=== PATIENT | female | born 1990 | race Caucasian/White ===

== ENCOUNTER 2019-12-15 13:48 | Outpatient (RCR) | payer OTHER, SELFPAY ==
[2019-12-15] MEDS: RHO(D) IMMUNE GLOBULIN 300 MCG SYRINGE IM (16:54)
== END 2020-03-14 23:59 | disposition home or self-care (01) ==
LOC: ANHLAB 13:48
PROVIDERS: PCP Student in an Organized Health Care Education/Training Program; Visit Provider Student in an Organized Health Care Education/Training Program
DX: Z29.13 Encounter for prophylactic Rho(D) immune globulin (principal); O36.0990 Maternal care for other rhesus isoimmunization, unspecified trimester, not applicable or unspecified; Z3A.00 Weeks of gestation of pregnancy not specified
CPT/HCPCS: 36415; 86900; 86901; 90384; 96372; J2790

== ENCOUNTER 2020-01-01 18:16 | Observation (INO) | payer OTHER, SELFPAY ==
[2020-01-01 18:39] VITALS: BP 146/84; PULSE 89
[2020-01-01 18:45] VITALS: BP 116/75; PULSE 88
[2020-01-01 19:00] VITALS: BP 122/83; PULSE 86
[2020-01-01 19:15] VITALS: BP 129/84; PULSE 89
[2020-01-01 19:30] VITALS: BP 131/90; PULSE 95
[2020-01-01 19:44] LABS: Add Urine Microscopic? YES; Amorphous Sediment Urine Few; Appearance Urine Cloudy (Clear); Bacteria Urine 3+ /hpf; Bilirubin Urine Negative (Negative); Blood Urine Negative (Negative); Color Urine Yellow (Yellow); Glucose Urine UA Negative (Negative); Ketones Urine Negative (Negative); Leukocyte Esterase Ur Negative LEU/UL (Negative); Mucus Urine Rare /lpf; Nitrate Urine Negative (Negative); Protein Urine Negative (Negative); Specific Grav Ur 1.012 (1.001-1.035); Squamous Epithelial Cell Urine Few /hpf (Few); Urobilinogen Urine Negative mg/dL (<2.0)
--- NOTE | 2020-01-01 19:44 | OBADM ---
This patient, Melly Gage, admitted to the OB room OB Post 115 for observation. Patient/family oriented to hospital policies and general routines including ID bracelet, bed and alarms, visiting hours, pain management, procedures, bathroom and other care routines, personal items, smoking policy, room service/diet, and visiting hours. Patient/Family are encouraged to report perceived risks to care and to ask questions if they do not understand what they are told or what they should do.
[2020-01-01 19:45] VITALS: BP 120/78; PULSE 83
--- NOTE | 2020-01-07 13:41 | P.PNOB_ITS ---
OB - Triage/Final Diagnosis Evaluation Laboratory results: Laboratory Tests 01/01/20 19:21 Urine Color Yellow Urine Appearance Cloudy H Urine pH 6.0 Ur Specific [place] 1.012 Urine Protein Negative Urine Glucose (UA) Negative Urine Ketones Negative Ur Blood (Man) Negative Urine Nitrate Negative Urine Bilirubin Negative Urine Urobilinogen Negative Leukocyte Esterase Rfl Negative Urine RBC 3-5 H Urine WBC 10-15 H Ur Squamous Epith Cells Few Amorphous Sediment Few H Urine Bacteria 3+ H Hyaline Casts 1-2 Urine Mucus Rare Final Diagnosis (1) False labor: Code(s): O47.9 - False labor, unspecified Status: Acute
== END 2020-01-01 20:00 | disposition home or self-care (01) ==
PROVIDERS: Admitting Provider Obstetrics & Gynecology; Visit Provider Obstetrics & Gynecology
DX: O47.03 False labor before 37 completed weeks of gestation, third trimester (principal); Z3A.31 31 weeks gestation of pregnancy
CPT/HCPCS: 81001; 87086; 87088; G0378; G0379

== ENCOUNTER 2020-01-30 18:50 | Outpatient (CLI) | payer OTHER, SELFPAY ==
[2020-01-30 19:06] VITALS: BP 145/97; PULSE 83
[2020-01-30 19:16] VITALS: BP 138/99; PULSE 75
[2020-01-30 19:31] VITALS: BP 148/100; PULSE 66
[2020-01-30 20:18] VITALS: BP 145/97; PULSE 83
--- NOTE | 2020-01-31 06:54 | PM.OBTRLD ---
OB - Triage/Final Diagnosis Visit Information Date of evaluation: 01/30/20 Reason for evaluation: other (gestational htn) Evaluation Vital signs: Vital Signs - 24 hr 01/30/20 19:06 01/30/20 19:16 01/30/20 19:31 Pulse Rate 83 75 66 Blood Pressure 145/97 H 138/99 H 148/100 H Blood Pressure [Left Arm] 01/30/20 20:18 Pulse Rate 83 Blood Pressure Blood Pressure [Left Arm] 145/97 H
== END 2020-01-30 19:45 | disposition home or self-care (01) ==
PROVIDERS: Visit Provider Student in an Organized Health Care Education/Training Program
DX: O13.9 Gestational [pregnancy-induced] hypertension without significant proteinuria, unspecified trimester (principal); Z3A.00 Weeks of gestation of pregnancy not specified
CPT/HCPCS: 59025

== ENCOUNTER 2020-01-31 19:12 | Outpatient (CLI) | payer OTHER, SELFPAY ==
[2020-01-31 19:30] VITALS: BMI 33.7
[2020-01-31 19:37] LABS: Collection Time Urine 24 HOURS
[2020-01-31 19:40] LABS: Patient Weight 202 Lbs; Total Volume 24 Hour Urine 2300 ml
[2020-01-31 19:45] LABS: Creatinine Clearance Urine 154.1 ml/min (75-125); Creatinine Urine 55.2 mg/dL
[2020-01-31 19:47] LABS: Total Protein Urine 24 Hr 3565 MG/DAY (28-141); Total Protein Urine Random 155 mg/dL
== END 2020-01-31 19:13 | disposition home or self-care (01) ==
LOC: ANHOBOP 19:21
PROVIDERS: Visit Provider Obstetrics & Gynecology
DX: O13.9 Gestational [pregnancy-induced] hypertension without significant proteinuria, unspecified trimester (principal); Z3A.00 Weeks of gestation of pregnancy not specified
CPT/HCPCS: 81050; 82575; 84156

== ENCOUNTER 2020-02-05 13:46 | Outpatient (RCR) | payer OTHER, SELFPAY ==
[2020-01-08 18:57] VITALS: BP 129/79; PULSE 89; RESP 16; TEMP 36.9
[2020-01-12 10:59] VITALS: BP 131/74; PULSE 99
[2020-01-15 18:34] VITALS: BP 128/76; PULSE 90; RESP 16; TEMP 36.6
[2020-01-15 19:00] VITALS: BP 128/76; PULSE 90
[2020-01-19 14:32] VITALS: BP 131/89; PULSE 84
[2020-01-22 18:43] VITALS: BP 128/89; PULSE 85
--- NOTE | 2020-01-22 18:52 | PC.NURSE ---
dr hayes returned paged and given pt report. tracing and toco tracing reviewed via telephone. pt bp reviewed via telephone. discharge orders received.
[2020-01-22 18:53] VITALS: TEMP 37.2
[2020-01-26 12:11] VITALS: BP 133/88; PULSE 91
[2020-01-29] VITALS (8 sets, daily range): BP systolic 139–156; BP diastolic 90–101; PULSE 72–89; RESP 16; TEMP 36.7
--- NOTE | 2020-01-29 18:43 | PC.NURSE ---
Patient in OB unit for NST for gestational diabetes. Upon assessment 2+ edema noted on ankles, 1+ noted on feet and trace noted on hands. Patient reports sudden increase of edema over last 3 days. Patient also reports intermittent LINK and intermittent right sided pain. BP upon assessment was 139/95 and 142/90, which is higher than patients normal. Dr. Escobar notified. Orders received.
--- NOTE | 2020-01-29 19:00 | PC.NURSE ---
24 Hour urine collection started
--- NOTE | 2020-01-29 19:08 | PC.NURSE ---
Plan of care discussed with patient. Lab work being collected explained to patient. Patient states understanding and denies questions.
[2020-01-29 19:15] LABS: Basophils Percent Auto 0.3 % (0.2-1.2); Eosinophils Absolute Auto 0.1 K/mm3 (0-0.3); Eosinophils Percent Auto 0.7 % (0-4.4); Hematocrit 34.3 % (37.0-47.0); Hemoglobin 11.9 g/dL (12.0-15.0); Immature Granulocyte Absolute 0.07 K/mm3 (0.00-0.031); Immature Granulocyte Percent A 0.6 % (0-0.5); Lymphocytes Absolute Auto 2.53 K/mm3 (0.9-3.2); Lymphocytes Percent Auto 22.8 % (18.3-44.2); Mean Corpuscular HGB Conc 34.7 g/dl (32-36); Mean Corpuscular Hemoglobin 31.2 pg (26-34); Mean Corpuscular Volume 89.8 fl (80-100); Mean Platelet Volume 12.6 fl (7.4-10.4); Monocytes Absolute Auto 0.9 K/mm3 (0.1-0.6); Monocytes Percent Auto 8.1 % (2.6-8.5); Neutrophils Absolute Auto 7.5 K/mm3 (1.3-6.7); Neutrophils Percent Auto 67.5 % (45.5-73.1); Platelet Count Result 154 k/mm3 (150-375); Red Blood Count 3.82 M/mm3 (4.2-5.4); White Blood Count 11.1 K/mm3 (4.5-10.0)
[2020-01-29 19:18] LABS: Add Urine Microscopic? YES; Appearance Urine Clear (Clear); Bacteria Urine 2+ /hpf; Bilirubin Urine Negative (Negative); Blood Urine Negative (Negative); Color Urine Yellow (Yellow); Glucose Urine UA Negative (Negative); Ketones Urine Negative (Negative); Leukocyte Esterase Ur Negative LEU/UL (NEGATIVE); Mucus Urine Rare /lpf; Nitrate Urine Negative (Negative); Protein Urine 3+ mg/dL (Negative); RBC Urine 0-2 /hpf (0-2); Specific Grav Ur 1.017 (1.001-1.035); Squamous Epithelial Cell Urine Few /hpf (Few); Urobilinogen Urine Negative mg/dL (<2.0); WBC Urine 0-3 /hpf (0-3)
[2020-01-29 19:21] LABS: Creatinine Urine 72.4 mg/dL; Total Protein Urine Random 137 mg/dL
[2020-01-29 19:25] LABS: Alanine Aminotransferase 19 U/L (4-35); Albumin Level 3.2 g/dL (3.5-5.1); Alkaline Phosphatase 139 U/L (38-126); Aspartate Amino Transferase 29 U/L (14-36); Bilirubin,Total < 0.1 mg/dL (0.2-1.3); Blood Urea Nitrogen 15 mg/dL (7-17); Calcium 8.3 mg/dL (8.4-10.2); Carbon Dioxide 24 mmol/L (22-30); Chloride 103 mmol/L (98-107); Estimated Glomerular Filt Rate > 60; Glucose 88 mg/dL (65-105); Potassium 4.1 mmol/L (3.4-5.0); Sodium 133 mmol/L (137-145); Uric Acid 6.7 mg/dL (2.5-7.5)
[2020-01-29 19:36] LABS: Glucose Point of Care 90 (65-105)
--- NOTE | 2020-01-29 19:48 | PC.NURSE ---
Dr. Escobar notified of patient lab results. Patient to be sent home with order for 24 hour urine collection. Patient to follow-up on Sunday in office. HIP precautions will be reviewed with patient prior to being sent home.
--- NOTE | 2020-01-29 20:00 | PC.NURSE ---
24 hour urine collection instructions reviewed with patient. Patient instructed to return 24 hour urine to OB department upon completion of collection. Patient states understanding. HIP precautions reviewed with patient. Patient states understanding. Patient left ambulating.
[2020-02-02 14:32] VITALS: BP 138/93; PULSE 89
--- NOTE | ~2020-02-05 | US_ITS ---
EXAMINATION: US OB BPP wo non-stress DATE: 01/19/2020 14:20 INDICATION: Gestational diabetes. Third trimester. TECHNIQUE: Real-time pelvic ultrasound was performed. COMPARISON: None. FINDINGS: There is a single living fetus in transverse lie. The placenta is anterior. heart rate is 146 beats per minute (bpm). Biophysical profile performed by the technologist: breathing (30 sec sustained breathing in 30 minutes): 2 out of 2 movement (3 gross body movements in 30 minutes): 2 out of 2 tone (one episode of fdwtxgp-[id number]-qenfgqy limb movement): 2 out of 2 Amniotic fluid pocket (2 cm): 2 out of 2 Total score: 8 out of 8 IMPRESSION: 1. Single living fetus in transverse lie. 2. Biophysical profile 8 out of 8. Reviewed, dictated and finalized at location A.
[2020-02-05 15:24] VITALS: BP 134/94; PULSE 89
== END 2020-02-10 08:15 | disposition home or self-care (01) ==
LOC: ANHOBOP 13:46
PROVIDERS: Obstetrics & Gynecology; Visit Provider Student in an Organized Health Care Education/Training Program
DX: O24.419 Gestational diabetes mellitus in pregnancy, unspecified control (principal); Z3A.32 32 weeks gestation of pregnancy; Z3A.33 33 weeks gestation of pregnancy; Z3A.34 34 weeks gestation of pregnancy; Z3A.35 35 weeks gestation of pregnancy; Z3A.36 36 weeks gestation of pregnancy
CPT/HCPCS: 36415; 59025; 76819; 80053; 81001; 82570; 84156; 84550; 85025

== ENCOUNTER 2020-02-08 09:21 | Inpatient (IN) | payer OTHER, SELFPAY ==
[2020-02-08] VITALS (23 sets, daily range): BP systolic 123–155; BP diastolic 81–106; PULSE 70–91; TEMP 36.6–36.7; BMI 36.7
[2020-02-08 10:55] LABS: Basophils Percent Auto 0.2 % (0.2-1.2); Eosinophils Absolute Auto 0.1 K/mm3 (0-0.3); Eosinophils Percent Auto 0.9 % (0-4.4); Hematocrit 35.3 % (37.0-47.0); Immature Granulocyte Absolute 0.08 K/mm3 (0.00-0.031); Immature Granulocyte Percent A 0.7 % (0-0.5); Lymphocytes Absolute Auto 2.02 K/mm3 (0.9-3.2); Lymphocytes Percent Auto 17.1 % (18.3-44.2); Mean Corpuscular Hemoglobin 31.1 pg (26-34); Mean Corpuscular Volume 91.5 fl (80-100); Monocytes Absolute Auto 1.1 K/mm3 (0.1-0.6); Monocytes Percent Auto 9.2 % (2.6-8.5); Neutrophils Absolute Auto 8.5 K/mm3 (1.3-6.7); Neutrophils Percent Auto 71.9 % (45.5-73.1); Platelet Count Result 114 k/mm3 (150-375); Red Blood Count 3.86 M/mm3 (4.2-5.4); Red Cell Distribution Width 14.3 % (11.5-14.5); White Blood Count 11.8 K/mm3 (4.5-10.0)
[2020-02-08 11:15] LABS: Alanine Aminotransferase 66 U/L (4-35); Albumin Level 2.9 g/dL (3.5-5.1); Alkaline Phosphatase 156 U/L (38-126); Aspartate Amino Transferase 63 U/L (14-36); Bilirubin,Total < 0.1 mg/dL (0.2-1.3); Blood Urea Nitrogen 17 mg/dL (7-17); Calcium 8.8 mg/dL (8.4-10.2); Carbon Dioxide 25 mmol/L (22-30); Chloride 105 mmol/L (98-107); Estimated Glomerular Filt Rate > 60; Glucose 63 mg/dL (65-105); Potassium 4.6 mmol/L (3.4-5.0); Sodium 133 mmol/L (137-145); Uric Acid 6.9 mg/dL (2.5-7.5)
[2020-02-08 11:21] LABS: Add Urine Microscopic? YES; Appearance Urine Cloudy (Clear); Bacteria Urine 1+ /hpf; Bilirubin Urine Negative (Negative); Blood Urine 1+ (Negative); Color Urine Amber (Yellow); Glucose Urine UA Negative (Negative); Ketones Urine Trace mg/dL (Negative); Leukocyte Esterase Ur Negative LEU/UL (NEGATIVE); Mucus Urine Moderate /lpf; Nitrate Urine Negative (Negative); Protein Urine 3+ mg/dL (Negative); Squamous Epithelial Cell Urine Many /hpf (Few); Urobilinogen Urine Negative mg/dL (<2.0)
[2020-02-08 11:53] LABS: Creatinine Urine 263.1 mg/dL
--- NOTE | 2020-02-08 12:50 | PM.IMHP ---
H&P: HPI History of Present Illness Chief complaint: swelling Narrative: 29 y/o at 36 5/7 weeks here with headache and increased swelling. Good movement. A2DM. Takes 10NPH/14H in AM, 10H at dinner, and 28NPH at bedtime. Takes labetalol 200 mg po bid. No abdominal pain, no visual field change. Headache better after a dose of Fioricet. 24 hour urine collection last week returned at >3000mg. Review of Systems Review of Systems: All systems reviewed & are unremarkable except as noted in HPI and below PMFSH Family History Family History Other Unknown family medical history Social History Social History Substance use: never Spiritual care concerns: No Comments Past OB: 2 vaginal deliveries, one SAB, one termination. Larger infant weighed 10#. Meds Home Medications and Allergies Home Medications Medication Instructions Recorded Confirmed Type PNV cmb#95-ferrous fumarate-FA 1 tablet PO DAILY 02/02/20 02/02/20 History [] insulin NPH isoph U-100 human 10 unit SUBCUT HS 02/02/20 02/02/20 History [Humulin N NPH U-100 Insulin] insulin NPH isoph U-100 human 28 unit SUBCUT QACBREAK 02/02/20 02/02/20 History [Humulin N NPH U-100 Insulin] insulin lispro [Humalog KwikPen 10 unit SUBCUT QPM 02/02/20 02/02/20 History Insulin] insulin lispro [Humalog KwikPen 14 unit SUBCUT QAM 02/02/20 02/02/20 History Insulin] Allergies Allergy/AdvReac Type Severity Reaction Status Date / Time No Known Allergies Allergy Verified 02/02/20 12:42 Vital Signs Vital Signs - 24 hr 02/08/20 10:31 02/08/20 10:46 02/08/20 11:01 Pulse Rate 70 72 72 Blood Pressure 146/93 H 149/100 H 155/96 H 02/08/20 11:16 02/08/20 11:31 02/08/20 11:46 Pulse Rate 76 77 75 Blood Pressure 145/95 H 143/99 H 149/94 H Exam Const: Orientation/consciousness: patient oriented x3 Other: Well-developed, well-nourished female in no acute distress. Neck: Thyroid: thyroid normal Lymphatic: no lymphadenopathy noted (in neck, axilla or inguinal nodes) Resp: Effort & Inspection: normal respiratory effort Auscultation: clear to auscultation bilaterally Cardio: Rate: regular rate Rhythm: regular rhythm Heart sounds: S1 normal heart sound present and S2 normal heart sound present GI: Other: ABD: Soft, nontender, gravid, vertex. NST 120 reactive. TOCO: no contractions. No RUQ or midepigastric tenderness. : General: Yes no CVA tenderness Other: Cervix closed, thick, soft. Back/Spine/Pelvis: Back: no CVA tenderness Skin: General skin exam: normal color and no rashes or lesions noted Neuro: General: patient oriented x3 Extrem: Other: Extremities: nontender with 2+ edema to the knees. Psych: Mental Status: mental status grossly normal Affect: normal affect H&P: Results Labs Labs: Short CBC 02/08/20 Range/Units 10:46 WBC 11.8 H (4.5-10.0) K/mm3 Hgb 12.0 (12.0-15.0) g/dL Hct 35.3 L (37.0-47.0) % Plt Count 114 L (150-375) k/mm3 BMP 02/08/20 10:46 Sodium 133 L Potassium 4.6 Chloride 105 Carbon Dioxide 25 BUN 17 Creatinine 0.60 L Glucose 63 L Calcium 8.8 Liver Function 02/08/20 Range/Units 10:46 Total Bilirubin < 0.1 L (0.2-1.3) mg/dL AST 63 H (14-36) U/L ALT 66 H (4-35) U/L Alkaline Phosphatase 156 H (38-126) U/L Albumin 2.9 L (3.5-5.1) g/dL Urine 02/08/20 Range/Units 10:46 Urine Color Lizzy (Yellow) Urine Appearance Cloudy H (Clear) Urine pH 6.0 (5.0-9.0) Ur Specific [place] 1.030 (1.001-1.035) Urine Protein 3+ H (Negative) mg/dL Urine Glucose (UA) Negative (Negative) mg/dL Assessment and Plan Assessment and plan (1) Preeclampsia: Code(s): O14.90 - Unspecified pre-eclampsia, unspecified trimester Status: Acute Assessment and Plan: Platelets decreased, trans
[2020-02-08 13:15] LABS: Total Protein Urine Random > 600 mg/dL
--- NOTE | 2020-02-08 16:21 | LDADM ---
This patient, Melly Gage, was admitted to OB Post 115 on 02/08/20 at 09:21. Plans for labor, pain management and were discussed with patient. Patient/family oriented to hospital policies and general routines including ID bracelet, bed and alarms, visiting hours, pain management, procedures, bathroom and other care routines, personal items, smoking policy, room service/diet and guest tray routines, infant security routines, and visiting hours. Patient/Family are encouraged to report perceived risks to care and to ask questions if they do not understand what they are told or what they should do. See OBIX for further documentation.
[2020-02-08 18:09] LABS: HIV 1/2 Ab P24 Ag Result Negative (Negative)
[2020-02-08] MEDS: INSULIN HUMAN REGULAR (*BKC) 100 UNITS/ML 10 UNITS SUB-Q (18:24)
[2020-02-08] MEDS: LABETALOL HCL 100 MG TABLET 200 MG PO (19:29)
[2020-02-08] MEDS: DINOPROSTONE 10 MG VAG INSERT VAGINAL (19:37)
[2020-02-08 19:42] LABS: Glucose Point of Care 110 (65-105)
[2020-02-08] MEDS: INSULIN HUMAN NPH (*BKC) 100 UNITS/ML 10 UNITS SUB-Q (21:26)
[2020-02-08] MEDS: ZOLPIDEM TARTRATE 5 MG TABLET PO (21:27)
[2020-02-09] VITALS (79 sets, daily range): BP systolic 115–169; BP diastolic 72–116; PULSE 57–100; RESP 16; TEMP 36.1–36.8; O2SAT 88–100
[2020-02-09] MEDS: LACTATED RINGERS 1,000 ML 125 ML IV CONT ×2 (05:32→08:11)
[2020-02-09] MEDS: OXYTOCIN 30 UNITS/NS 500 ML 30 UNITS/500 ML BAG IV CONT (05:33)
[2020-02-09 06:09] LABS: Glucose Point of Care 64 (65-105)
[2020-02-09] MEDS: LABETALOL HCL 100 MG TABLET 200 MG PO ×2 (07:07→19:33)
--- NOTE | 2020-02-09 07:13 | PM.OBPNVD ---
OB - PN: Subj Subjective Date/time seen: 02/09/20 07:13 Interval history: cx 3/80/-2 arom clear fhts reassuring bp labile OB - PN: Obj Data Labs CBC & Chem 7: 02/08/20 10:46 02/08/20 10:46 Labs: Laboratory Results - last 24 hr 02/08/20 02/08/20 02/08/20 10:46 10:46 10:46 WBC 11.8 H RBC 3.86 L Hgb 12.0 Hct 35.3 L MCV 91.5 MCH 31.1 MCHC 34.0 RDW 14.3 Plt Count 114 L MPV 13.0 H Immature Gran % (Auto) 0.7 H Neut % (Auto) 71.9 Lymph % (Auto) 17.1 L [place] % (Auto) 9.2 H Eos % (Auto) 0.9 Baso % (Auto) 0.2 Lymph # (Auto) 2.02 [place] # (Auto) 1.1 H Eos # (Auto) 0.1 Baso # (Auto) 0.0 Abs Immat Gran (auto) 0.08 H Absolute Neuts (auto) 8.5 H Absolute Nucleated RBC 0.0 Nucleated RBC % 0.0 Sodium Potassium Chloride Carbon Dioxide BUN Creatinine Estim Creat Clear Calc Estimated GFR Glucose POC Capillary Glucose Uric Acid Calcium Total Bilirubin AST ALT Alkaline Phosphatase Total Protein Albumin Urine Color Lizzy Urine Appearance Cloudy H Urine pH 6.0 Ur Specific [place] 1.030 Urine Protein 3+ H Urine Glucose (UA) Negative Urine Ketones Trace Ur Blood (Man) 1+ H Urine Nitrate Negative Urine Bilirubin Negative Urine Urobilinogen Negative Ur Leukocyte Esterase Negative Urine RBC 3-5 H Urine WBC 10-15 H Ur Squamous Epith Cells Many H Urine Bacteria 1+ H Hyaline Casts 5-9 H Urine Mucus Moderate H U Random Total Protein > 600 Urine Creatinine 263.1 HIV 1&2 Ab/P24 Ag 4thGn Blood Type Antibody Screen 02/08/20 02/08/20 02/08/20 10:46 17:01 17:01 WBC RBC Hgb Hct MCV MCH MCHC RDW Plt Count MPV Immature Gran % (Auto) Neut % (Auto) Lymph % (Auto) [place] % (Auto) Eos % (Auto) Baso % (Auto) Lymph # (Auto) [place] # (Auto) Eos # (Auto) Baso # (Auto) Abs Immat Gran (auto) Absolute Neuts (auto) Absolute Nucleated RBC Nucleated RBC % Sodium 133 L Potassium 4.6 Chloride 105 Carbon Dioxide 25 BUN 17 Creatinine 0.60 L Estim Creat Clear Calc Not Reportable Estimated GFR > 60 Glucose 63 L POC Capillary Glucose Uric Acid 6.9 Calcium 8.8 Total Bilirubin < 0.1 L AST 63 H ALT 66 H Alkaline Phosphatase 156 H Total Protein 6.0 L Albumin 2.9 L Urine Color Urine Appearance Urine pH Ur Specific [place] Urine Protein Urine Glucose (UA) Urine Ketones Ur Blood (Man) Urine Nitrate Urine Bilirubin Urine Urobilinogen Ur Leukocyte Esterase Urine RBC Urine WBC Ur Squamous Epith Cells Urine Bacteria Hyaline Casts Urine Mucus U Random Total Protein Urine Creatinine HIV 1&2 Ab/P24 Ag 4thGn Negative Blood Type O Negative Antibody Screen Negative 02/08/20 02/09/20 19:31 05:47 WBC RBC Hgb Hct MCV MCH MCHC RDW Plt Count MPV Immature Gran % (Auto) Neut % (Auto) Lymph % (Auto) [place] % (Auto) Eos % (Auto) Baso % (Auto) Lymph # (Auto) [place] # (Auto) Eos # (Auto) Baso # (Auto) Abs Immat Gran (auto) Absolute Neuts (auto) Absolute Nucleated RBC Nucleated RBC % Sodium Potassium Chloride Carbon Dioxide BUN Creatinine Estim Creat Clear Calc Estimated GFR Glucose POC Capillary Glucose 110 64 L Uric Acid Calcium Total Bilirubin AST ALT Alkaline Phosphatase Total Protein Albumin Urine Color Urine Appearance Urine pH Ur Specific [place] Urine Protein Urine Glucose (UA) Urine Ketones Ur Blood (Man) Urine Nitrate Urine Bilirubin Urine Urobilinogen Ur Leukocyte Esterase Urine RBC Urine WBC Ur Squamous Epith Cells Urine Bacteria Hyaline Casts Urine Mucus U Ran
[2020-02-09 07:40] LABS: Rapid Plasma Reagin Non-Reactive (NonReactive)
[2020-02-09 08:31] LABS: Glucose Point of Care 82 (65-105)
--- NOTE | 2020-02-09 09:07 | WPDANESEPPF ---
Anes - Initial Pre Proc Eval Date/Time: 02/09/20 09:07 Surgeon: Champ Escobar MD Pre Op Diagnosis: swelling Patient Data Age: 29 Gender: F Height: 5 ft 4 in Weight: 97 kg Last Vital Signs Temp 36.8 C 02/09/20 08:13 Pulse 76 02/09/20 09:00 BP 136/94 H 02/09/20 09:00 Pulse Ox 97 02/09/20 09:05 Allergies Allergy/AdvReac Type Severity Reaction Status Date / Time No Known Allergies Allergy Verified 02/02/20 12:42 Home Medications Medication Instructions Recorded Confirmed Type PNV cmb#95-ferrous fumarate-FA 1 tablet PO DAILY 02/02/20 02/08/20 History [] insulin NPH isoph U-100 human 10 unit SUBCUT HS 02/02/20 02/08/20 History [Humulin N NPH U-100 Insulin] insulin NPH isoph U-100 human 28 unit SUBCUT QACBREAK 02/02/20 02/08/20 History [Humulin N NPH U-100 Insulin] insulin lispro [Humalog KwikPen 10 unit SUBCUT QPM 02/02/20 02/08/20 History Insulin] insulin lispro [Humalog KwikPen 14 unit SUBCUT QAM 02/02/20 02/08/20 History Insulin] labetalol 200 mg PO BID 02/08/20 02/08/20 History Laboratory Tests 02/08/20 02/08/20 02/08/20 10:46 10:46 10:46 WBC 11.8 K/mm3 H K/mm3 (4.5-10.0) RBC 3.86 M/mm3 L M/mm3 (4.2-5.4) Hgb 12.0 g/dL g/dL (12.0-15.0) Hct 35.3 % L % (37.0-47.0) MCV 91.5 fl fl (80-100) MCH 31.1 pg pg (26-34) MCHC 34.0 g/dl g/dl (32-36) RDW 14.3 % % (11.5-14.5) Plt Count 114 k/mm3 L k/mm3 (150-375) MPV 13.0 fl H fl (7.4-10.4) Immature Gran % (Auto) 0.7 % H % (0-0.5) Neut % (Auto) 71.9 % % (45.5-73.1) Lymph % (Auto) 17.1 % L % (18.3-44.2) [place] % (Auto) 9.2 % H % (2.6-8.5) Eos % (Auto) 0.9 % % (0-4.4) Baso % (Auto) 0.2 % % (0.2-1.2) Lymph # (Auto) 2.02 K/mm3 K/mm3 (0.9-3.2) [place] # (Auto) 1.1 K/mm3 H K/mm3 (0.1-0.6) Eos # (Auto) 0.1 K/mm3 K/mm3 (0-0.3) Baso # (Auto) 0.0 K/mm3 K/mm3 (0.0-0.1) Abs Immat Gran (auto) 0.08 K/mm3 H K/mm3 (0.00-0.031) Absolute Neuts (auto) 8.5 K/mm3 H K/mm3 (1.3-6.7) Absolute Nucleated RBC 0.0 K/mm3 K/mm3 (0.0-0.012) Nucleated RBC % 0.0 % % (0.0-0.2) Sodium Potassium Chloride Carbon Dioxide BUN Creatinine Estim Creat Clear Calc Estimated GFR Glucose POC Capillary Glucose Uric Acid Calcium Total Bilirubin AST ALT Alkaline Phosphatase Total Protein Albumin Urine Color Lizzy (Yellow) Urine Appearance Cloudy H (Clear) Urine pH 6.0 (5.0-9.0) Ur Specific [place] 1.030 (1.001-1.035) Urine Protein 3+ mg/dL H mg/dL (Negative) Urine Glucose (UA) Negative mg/dL mg/dL (Negative) Urine Ketones Trace mg/dL mg/dL (Negative) Ur Blood (Man) 1+ H (Negative) Urine Nitrate Negative (Negative) Urine Bilirubin Negative (Negative) Urine Urobilinogen Negative mg/dL mg/dL (<2.0) Ur Leukocyte Esterase Negative CARLITOS/UL CARLITOS/UL (NEGATIVE) Urine RBC 3-5 /hpf H /hpf (0-2) Urine WBC 10-15 /hpf H /hpf (0-3) Ur Squamous Epith Cells Many /hpf H /hpf (Few) Urine Bacteria 1+ /hpf H /hpf Hyaline Casts 5-9 /lpf H /lpf (None) Urine Mucus Moderate /lpf H /lpf U Random Total Protein > 600 mg/dL mg/dL Urine Creatinine 263.1 mg/dL mg/dL RPR HIV 1&2 Ab/P24 Ag 4thGn Blood Type Antibody Screen 02/08/20 02/08/20 02/08/20 10:46 17:01 17:01 WBC RBC Hgb
[2020-02-09] MEDS: MISOPROSTOL 200 MCG TABLET 800 MCG RECTAL (10:51)
[2020-02-09] MEDS: ONDANSETRON INJ 4 MG/2 ML VIAL IV PUSH (10:51)
--- NOTE | 2020-02-09 11:00 | PM.OBPRVD ---
OB - Delivery Note Procedure Procedure: Patient delivered precipitously in the bed. Dr. Janie Webber entered the room and the fetus had delivered and was still attached to the umbilical cord. The cord was clamped and cut and a segment of cord was collected for cord gases. Cord blood was collected for blood type and Coomb's testing. While providing gentle traction, the umbilical cord had evulsed from the placenta. At this time it was decided that the placenta would need to be manually extracted. At this time I arrived to complete the placental delivery. The patient was given 2 g of Ancef. The uterus was palpated and noted to have clamped down with the placenta in utero. Banjo curretage was performed under bedside ultrasound guidance. The placenta was delivered in several pieces. A good endometrial stripe was observed under bedside ultrasound. Good hemostasis was noted. 800 mcg of cytotec was placed rectally. The perineum was inspected and there was a 1st degree perineal laceration. The laceration was repaired with 3-0 vicryl in the usual fashion. The uterus was firm and good hemostasis was noted. The patient and fetus were stable in the delivery room. events: Pre-Eclampsia and Rh Incompatibility Induction method: other (Cervidil ) Delivery augmentation: pitocin Delivery monitor: external FHT Route of delivery: Episiotomy description: None Laceration description: Perineal - 1st Degree Delivery repair: vicryl Specimen: No Estimated blood loss (mL): 350 Anesthesia type: Epidural Disposition: floor () Complications: umbilical cord evulsion, retained placenta requiring D&C Baby Date of : 02/09/20 Weeks of gestation at delivery: 36 gender: Male presentation: vertex Placenta delivery description: Spontaneous cord vessel description: 3 Vessels
[2020-02-09 11:05] LABS: Hemoglobin 12.1 g/dL (12.0-15.0)
[2020-02-09] MEDS: ceFAZolin 2 GM/D5W 50 ML 2 GM/50 ML BAG IVPB (11:27)
[2020-02-09] MEDS: OXYTOCIN 30 UNITS/NS 500 ML 30 UNITS/500 ML BAG 125 UNITS IV CONT (11:27)
[2020-02-09] MEDS: IBUPROFEN 600 MG TABLET PO ×2 (16:18→21:32)
[2020-02-09] MEDS: ACETAMINOPHEN 325 MG TABLET 650 MG PO (17:20)
--- NOTE | 2020-02-09 17:26 | PC.NURSE ---
Patient transferred to post room #284 via wheelchair. Support person present. Oriented to unit, room, information board, rooming in, admission packet and security measures. Patient verbalizes understanding.
--- NOTE | 2020-02-10 00:28 | PC.NURSE ---
1929- Patient's assessment done at this time. C/o occipital LINK-PL 8. Pt has had both Motrin and Tylenol in the last few hours. Gave cool rag and turned out the lights so the pt could rest. BP 129/86. 2129- Pt calls out requesting pain meds for a LINK-PL 9. Pt grimacing. Motrin given. Will call Dr. Escobar o/c to request for something stronger for LINK. BP taken - 125/82. No other complaints at this time. 2138- Paged Dr. Walter. 2216- Paged Dr. Escobar a second time. 2218- Dr. Escobar called back right away after second page. Updated on pt status. Pt c/o LINK-PL 9, BPs are within normal limits and no other complaints. Orders received for Fioricet PO Q4H PRN. Call if patient's LINK does not improve. 2253- Fioricet given. 2349- Checked on pt. States her LINK is completely gone.
[2020-02-10] MEDS: IBUPROFEN 600 MG TABLET PO ×2 (04:33→17:28)
[2020-02-10 05:02] LABS: Hematocrit 29.6 % (37.0-47.0); Hemoglobin 9.8 g/dL (12.0-15.0)
[2020-02-10] MEDS: POLYSACCHARIDE IRON COMPLEX 150 MG CAPSULE PO ×2 (07:38→17:28)
[2020-02-10] MEDS: DOCUSATE SODIUM 100 MG CAPSULE PO ×2 (07:38→17:28)
[2020-02-10] MEDS: LABETALOL HCL 100 MG TABLET 200 MG PO ×2 (07:38→20:22)
[2020-02-10] MEDS: MULTIVIT/MIN/PREN/FOL AC/IRON TABLET 1 TAB PO (07:38)
[2020-02-10 08:45] VITALS: BP 136/92; PULSE 78; RESP 14; TEMP 36.7
--- NOTE | 2020-02-10 10:16 | WPDANLDPN2 ---
Anes-Prog Note L&D Date/Time: 02/10/20 10:16 Comfortable throughout: labor and delivery Neuraxial method: epidural Epidural/Spinal procedure site: clean & non-tender Neuro status: Neuro function grossly intact. Cardiovascular status: normal Respiratory status: normal Airway patency: baseline Mental status: baseline Post-Op hydration status: normal Vital Signs: Last Vital Signs Temp 36.4 C 02/09/20 19:30 Pulse 77 02/09/20 19:33 Resp 16 02/09/20 19:30 BP 125/82 02/09/20 21:30 Pulse Ox 100 02/09/20 19:30 Post-procedural complaints: none Patient feedback: Patient satisfied with anesthetic care.
[2020-02-10] MEDS: TETANUS,DIPHTHERIA,AC PERTUSSIS ADULT (0.5 ML) BOOSTRIX IM (13:33)
[2020-02-10 17:36] VITALS: BP 135/95; PULSE 80; RESP 14; TEMP 36.5
--- NOTE | 2020-02-10 18:08 | P.PNOB_ITS ---
OB - PN: Subj Subjective Date/time seen: 02/10/20 18:08 Narrative: Intermittent headaches, resolve with Fioricet. Feels fine currently. BP well- controlled. Desires circumcision for son. OB - PN: Obj Data Labs CBC & Chem 7: 02/10/20 04:38 02/08/20 10:46 Labs: Laboratory Results - last 24 hr 02/10/20 04:38 Hgb 9.8 L Hct 29.6 L OB - PN A/P Plan Comments: A: PPD#1, doing well. Preeclampsia, resolving. Intermittent headache, responds to Fioricet. GDM, delivered. P: Routine care. Reviewed circumcision in detail. Exam Psych: Other: AVSS ABD soft, nontender, fundus firm EXT nontender
[2020-02-10 20:15] VITALS: BP 142/93; PULSE 80; RESP 16; TEMP 36.8; O2SAT 100
[2020-02-10 20:22] VITALS: PULSE 80
[2020-02-10 23:15] VITALS: BP 130/87; PULSE 83
--- NOTE | 2020-02-11 08:30 | PC.NURSE ---
PT introductions made and plan of care discussed per post , pain management, bottle feeding, daily care activities and pending discharge to home. PT verbalized understanding of such care.
[2020-02-11 08:45] VITALS: BP 139/93; PULSE 88; RESP 18; TEMP 37; O2SAT 99
[2020-02-11 09:45] VITALS: PULSE 96; RESP 18; O2SAT 99
[2020-02-11 09:46] VITALS: PULSE 96
[2020-02-11] MEDS: DOCUSATE SODIUM 100 MG CAPSULE PO (09:46)
[2020-02-11] MEDS: POLYSACCHARIDE IRON COMPLEX 150 MG CAPSULE PO (09:46)
[2020-02-11] MEDS: LABETALOL HCL 100 MG TABLET 200 MG PO (09:46)
[2020-02-11] MEDS: IBUPROFEN 600 MG TABLET PO (09:47)
--- NOTE | 2020-02-11 13:45 | PC.NURSE ---
PT received discharge instructions per protocol and verbalized understanding of such care
--- NOTE | 2020-02-11 13:45 | PC.NURSE ---
Patient was given the opportunity to view the discharge video Mother & Baby Care, The First Two Weeks and to ask questions. Patient declined viewing the video and has been given the mother/baby guide for home reference but down loaded to video to phone.
--- NOTE | 2020-02-11 14:18 | PC.NURSE ---
PT discharged to home ambulatory accompanied by fob and infant to waiting car. Follow up appts confirmed
--- NOTE | 2020-02-24 06:26 | PM.DS ---
DS: Admitting Diagnosis Admitting Diagnosis Admitting Diagnosis: Encounter for supervision of normal , unspecified, third trimester near term/htn DS: Summary Time Spent with Patient Time attestation: Total time spent providing and/or coordinating discharge services: Exam Const: General: no acute distress Eyes: General: appearance normal, both eyes and all related structures Neck: Neck: supple and no JVD Thyroid: thyroid normal Resp: Effort & Inspection: normal respiratory effort Auscultation: clear to auscultation bilaterally Cardio: Rate: regular rate Rhythm: regular rhythm GI: Inspection: non-distended GI Palp: Yes Soft to palpation, No Tenderness to palpation present (GI) and No Guarding due to palpation present (GI) Auscultation: normal bowel sounds : General: Yes bladder normal to palpation External Female Exam: normal external appearance Speculum Exam - Vagina: normal vaginal discharge and No vaginal bleeding Speculum Exam - Cervix: nontender Bimanual exam- vagina & uterus: bladder normal to palpation and No Cervical tenderness present OB/external & speculum: No vaginal bleeding Skin: General skin exam: no rashes or lesions noted Extrem: General: normal to inspection and no edema Psych: Mental Status: mental status grossly normal Affect: normal affect DS: Data Data Completed and Pending Completed studies during hospitalization: Pending at discharge 02/09/20 11:52 Surgical [PTH] Routine Discharge Plan Discharge Consulting providers: Luiz Baumann Discharging Clinician: William Raymundo Anticipated Discharge Date/Time: 02/11/20 07:07 Patient Disposition: Home, Self-Care Activity: as tolerated and pelvic rest Diet: regular Discharge Instructions: Education: Mom and Baby Guide Given to: Mother Follow-Up: Call your delivering provider's office for an appointment to be seen in: 1 Week Mom and baby should come to the [facility] for the follow-up appointment. Appointment Date/Time: February 12, 2020 at 11:00 am What to expect at your follow-up visit: Blood Pressure Check Call [phone] if you are unable to keep your appointment time. BREAST CARE: 1. Wear a snug supportive bra. 2. For engorgement discomfort: Bottle Feeding: A. May apply ice packs PERINEAL CARE: 1. Until bleeding stops, use your goran bottle after urinating 2. Change your pad frequently throughout the day 3. You may take sitz baths several times a day (fill your bathtub with warm water and soak for 20 minutes.) Do NOT bathe in the water 4. No tub baths until seen by your physician - You may shower ACTIVITY: 1. Rest as much as possible. 2. Do not exercise or lift anything heavier than your baby (such as laundry or other children.) 3. Avoid stairs or driving as much as possible. 4. Do not put anything into the vagina. No douching, tampons, or sexual activity until seen by physician. NOTIFY PHYSICIAN IF YOU HAVE ANY QUESTIONS OR IF ANY OF THE FOLLOWING SYMPTOMS OCCUR: 1. If your perineum becomes red, swollen, or more painful than what you have experienced in the hospital. 2. If your vaginal bleeding becomes foul smelling. 3. If your vaginal bleeding becomes more heavy than a period or if your bleeding changes from pink to bright red. However, you may pass an occasional walnut-sized clot once or twice for the first week . 4. If you experience a sharp, shooting pain in you calves. 5. If you discover a hard, reddened area on your breast or if you experience flu-like symptoms. 6. Call for temp 100.4 or greater DIET: 1. Eat regular, well-balanced meals. 2. Drink plenty of fluids daily. If , drink to thirst. Patient Instructions: Antibiotic Form Stand Alone Forms: General Discharge Information Follow-up/Referrals: William Raymundo MD [Physician] - 1 Week Discharge Medications: New acetaminophen [Mapap (ac
== END 2020-02-11 14:18 | disposition home or self-care (01) | DRG 541 ==
LOC: ANHOBOP 10:21 → ANHOBPP 10:23 → ANHOBOP 13:28 → ANHOB2 02-11 06:49 → ANHLDR 02-12 12:06 → ANHOB2 02-12 12:06 → ANHOBPP 02-12 12:06
PROVIDERS: Admitting Provider Obstetrics & Gynecology; Visit Provider Student in an Organized Health Care Education/Training Program
DX: O14.94 Unspecified pre-eclampsia, complicating childbirth (principal); Z37.0 Single live birth; Z3A.36 36 weeks gestation of pregnancy; O24.424 Gestational diabetes mellitus in childbirth, insulin controlled; O70.0 First degree perineal laceration during delivery; O73.0 Retained placenta without hemorrhage; O62.3 Precipitate labor; O69.89X0 Labor and delivery complicated by other cord complications, not applicable or unspecified; O36.0930 Maternal care for other rhesus isoimmunization, third trimester, not applicable or unspecified
CPT/HCPCS: 36415; 59025; 80053; 81001; 82570; 84156; 84550; 85014; 85018; 85025; 86592; 86703; 86850; 86900; 86901; 87086; 87088; 88307; 90715; A9270; G0432; J0690; J1815; J2405; J2590; J2795; J3010; J7120

== ENCOUNTER 2021-01-28 12:53 | Emergency (ER) | payer OTHER, SELFPAY ==
--- NOTE | ~2021-01-28 | US_ITS ---
EXAMINATION: US OB <= 14 weeks fetus DATE: 01/28/2021 15:06 INDICATION: Miscarriage. TECHNIQUE: Real-time transabdominal and transvaginal pelvic ultrasound was performed. COMPARISON: None. FINDINGS: TRANSABDOMINAL ULTRASOUND: The uterus measures 8.3 x 5.5 x 7.4 cm. TRANSVAGINAL ULTRASOUND: There is an intrauterine gestational sac. A yolk sac is identified. The fet al crown rump length measures 7 mm, which correlates with an estimated gestational age of 6 weeks and 4 day(s) (+/-) 4 day(s). heart motion is identified measuring 123 beats per minute (bpm) by M- mode Doppler. There is a small subchorionic hematoma. The right ovary measures 3.0 x 2.1 x 1.8 cm. Th e left ovary measures 2.0 x 1.3 x 1.2 cm. There is no free fluid in the pelvis. IMPRESSION: 1. Single living intrauterine gestation with estimated date delivery of 09/19/2021. 2. Small subchorionic hematoma. Reviewed, dictated and finalized at location A. IMPRESSION: 1. Single living intrauterine gestation with estimated date delivery of 2020. 2. Small subchorionic hematoma.
[2021-01-28 13:00] VITALS: BP 126/73; PULSE 76; RESP 16; TEMP 36.5; O2SAT 100
--- NOTE | 2021-01-28 13:53 | ED.FEMALEGU ---
HPI - Female Genitourinary General Chief complaint: Vaginal Bleeding Stated complaint: 6-7 WEEKS SPOTTING, CRAMPING Time Seen by Provider: 01/28/21 13:52 Source: patient and RN notes reviewed Mode of arrival: ambulatory Limitations: no limitations and clinical condition History of Present Illness HPI Narrative: Patient is a 30 years old white female presented to the ED with left lower quadrant pain, sharp, started yesterday, worse with activities. This morning patient developed vaginal spotting. Patient is 2 weeks . Patient is 5, para 3 and 2. Patient also is RH negative. Patient denies any fever, chills, nausea, vomiting, diarrhea, constipation, urinary symptoms or history of abdominal surgery. Patient does not smoke or drink or uses drugs. Related Data Home Medications Medication Instructions Recorded Confirmed labetalol 200 mg PO BID 02/08/20 02/08/20 Allergies Allergy/AdvReac Type Severity Reaction Status Date / Time No Known Allergies Allergy Verified 01/28/21 14:07 Review of Systems Review of Systems: Narrative: CONSTITUTIONAL: Denies fever, chills, or sweats. EYES: Denies visual changes, redness, or discharge. ENT: Denies rhinorrhea, congestion, sore throat, or otalgia. CARDIOVASCULAR: Denies chest pain, palpitations, or edema. RESPIRATORY: Denies cough or dyspnea. GASTROINTESTINAL: Denies abdominal pain, nausea, vomiting, or diarrhea. GENITOURINARY: Denies dysuria or hematuria. SKIN: Denies rash or itching. MUSCULOSKELETAL: Denies back pain, joint pain, or myalgia. NEUROLOGIC: Denies headache, numbness, or weakness. PSYCHIATRIC: Denies anxiety or depression. PMFSH Past Medical History Medical History (Updated 01/28/21 @ 16:02 by Kush Benjamin MD) Hypertension Family History Family History Other Unknown family medical history Social History Social History Smoking status: Never smoker Substance use: never Gender identity (if verbalized by the patient): Female Spiritual care concerns: No Exam Narrative: Exam Narrative: General appearance: Well-developed, well-nourished Skin: Normal color Head: Normocephalic, nontraumatic Eyes: Clear conjunctiva ENT: Oropharynx normal, ears normal, nose normal Neck: Supple, nontender Chest and respiratory: Airway patent, no respiratory distress, no accessory muscle use Heart: Regular rate/rhythm Abdomen: Soft, slight tenderness left lower quadrant, no organomegaly, quiet bowel sounds Vascular: Normal peripheral pulses, normal capillary refill. Musculoskeletal: Normal range of motion, nontender back Neurologic: Alert and oriented ?3, [employer] is normal as tested, no gross motor deficit Course Course Emergency Course: Stable Vital Signs Vital signs: Vital Signs Temperature 36.5 C 01/28/21 13:00 Pulse Rate 76 01/28/21 13:00 Respiratory Rate 16 01/28/21 13:00 Blood Pressure 126/73 01/28/21 13:00 Pulse Oximetry 100 01/28/21 13:00 Temperature 36.5 C 01/28/21 13:00 Pulse Rate 76 01/28/21 13:00 Respiratory Rate 16 01/28/21 13:00 Blood Pressure 126/73 01/28/21 13:00 Pulse Oximetry 100 01/28/21 13:00 MDM - Female Genitourinary MDM Narrative Medical decision making narrative: related symptoms versus miscarriage, ectopic is my concern Labs, ultrasound pelvis, pelvic exam ordered. Further plan to follow Differential Diagnosis Differential diagnosis: Likely urinary tract infection and other (Ectopic , miscarriage, related symptoms) Lab Data Result diagrams: 01/28
[2021-01-28] MEDS: SODIUM CHLORIDE 0.9% IV 1,000 ML 999 ML IV CONT (14:07)
[2021-01-28 14:35] LABS: Basophils Percent Auto 0.1 % (0.2-1.2); Eosinophils Absolute Auto 0.1 K/mm3 (0-0.3); Eosinophils Percent Auto 0.6 % (0-4.4); Hematocrit 36.9 % (37.0-47.0); Hemoglobin 12.2 g/dL (12.0-15.0); Immature Granulocyte Absolute 0.02 K/mm3 (0.00-0.031); Immature Granulocyte Percent A 0.2 % (0-0.5); Lymphocytes Absolute Auto 2.06 K/mm3 (0.9-3.2); Lymphocytes Percent Auto 19.1 % (18.3-44.2); Mean Corpuscular HGB Conc 33.1 g/dl (32-36); Mean Corpuscular Hemoglobin 29.7 pg (26-34); Mean Corpuscular Volume 89.8 fl (80-100); Mean Platelet Volume 11.3 fl (7.4-10.4); Monocytes Absolute Auto 0.7 K/mm3 (0.1-0.6); Monocytes Percent Auto 6.9 % (2.6-8.5); Neutrophils Absolute Auto 7.9 K/mm3 (1.3-6.7); Neutrophils Percent Auto 73.1 % (45.5-73.1); Platelet Count Result 204 k/mm3 (150-375); Red Blood Count 4.11 M/mm3 (4.2-5.4); Red Cell Distribution Width 13.3 % (11.5-14.5); White Blood Count 10.8 K/mm3 (4.5-10.0)
[2021-01-28 14:49] LABS: Alanine Aminotransferase 14 U/L (4-35); Albumin Level 4.2 g/dL (3.5-5.1); Alkaline Phosphatase 69 U/L (38-126); Anion Gap 4 mmol/L (8-16); Aspartate Amino Transferase 21 U/L (14-36); Bilirubin,Total 0.2 mg/dL (0.2-1.3); Blood Urea Nitrogen 9 mg/dL (7-17); Calcium 9.2 mg/dL (8.4-10.2); Carbon Dioxide 28 mmol/L (22-30); Chloride 105 mmol/L (98-107); Estimated CRCL calculation 141 ml/min; Estimated Glomerular Filt Rate > 60; Glucose 105 mg/dL (65-105); Potassium 3.8 mmol/L (3.4-5.0); Sodium 137 mmol/L (137-145)
[2021-01-28 15:34] LABS: Add Urine Microscopic? NO; Appearance Urine Clear (Clear); Bilirubin Urine Negative (Negative); Blood Urine Negative (Negative); Color Urine Straw (Yellow); Glucose Urine UA Negative (Negative); Ketones Urine Negative (Negative); Leukocyte Esterase Ur Negative LEU/UL (Negative); Nitrate Urine Negative (Negative); Protein Urine Negative (Negative); Specific Grav Ur 1.009 (1.001-1.035); Urobilinogen Urine Negative mg/dL (<2.0)
[2021-01-28] MEDS: RHO(D) IMMUNE GLOBULIN 300 MCG/2 ML SYRINGE IM (17:07)
[2021-01-28 17:39] VITALS: BP 128/76; PULSE 82; RESP 15; O2SAT 100
== END 2021-01-28 17:41 | disposition home or self-care (01) ==
PROVIDERS: Emergency Provider Emergency Medicine
DX: O20.0 Threatened abortion (principal); O10.911 Unspecified pre-existing hypertension complicating pregnancy, first trimester; Z3A.01 Less than 8 weeks gestation of pregnancy
CPT/HCPCS: 36415; 76801; 80053; 81003; 84702; 85025; 85461; 90384; 96360; 96372; 99284; J2790; J7030

== ENCOUNTER 2021-06-27 10:18 | Outpatient (RCR) | payer OTHER, SELFPAY ==
[2021-06-27] MEDS: RHO(D) IMMUNE GLOBULIN 300 MCG/2 ML SYRINGE IM (13:48)
== END 2021-09-25 23:59 | disposition home or self-care (01) ==
LOC: ANHLAB 10:18
PROVIDERS: Visit Provider Student in an Organized Health Care Education/Training Program
DX: Z29.13 Encounter for prophylactic Rho(D) immune globulin (principal); O36.0190 Maternal care for anti-D [Rh] antibodies, unspecified trimester, not applicable or unspecified; Z3A.00 Weeks of gestation of pregnancy not specified
CPT/HCPCS: 36415; 85461; 90384; 96372; J2790

== ENCOUNTER 2021-08-15 10:22 | Outpatient (CLI) | payer OTHER, SELFPAY ==
[2021-08-15] MEDS: TETANUS,DIPHTHERIA,AC PERTUSSIS ADULT (0.5 ML) BOOSTRIX IM (12:11)
== END 2021-08-15 10:23 | disposition home or self-care (01) ==
LOC: ANHOBOP 11:20
PROVIDERS: Visit Provider Student in an Organized Health Care Education/Training Program
DX: Z23 Encounter for immunization (principal)
CPT/HCPCS: 90471; 90653; 90715; G0008

== ENCOUNTER 2021-09-05 11:18 | Outpatient (RCR) | payer OTHER, SELFPAY ==
[2021-07-25 11:38] VITALS: BP 114/70; PULSE 95
[2021-08-01 14:06] VITALS: BP 108/64; PULSE 97
[2021-08-08 11:20] VITALS: BP 125/68; PULSE 93
[2021-08-15 12:15] VITALS: BP 115/65; PULSE 87
[2021-08-22 10:34] VITALS: BP 104/61; PULSE 88
[2021-08-29 12:28] VITALS: BP 115/66; PULSE 97
--- NOTE | ~2021-09-05 | US_ITS ---
EXAMINATION: US OB BPP wo non-stress DATE: 08/15/2021 12:06 INDICATION: Decelerations. Third trimester. TECHNIQUE: Real-time pelvic ultrasound was performed. COMPARISON: Ultrasound 01/28/2021 FINDINGS: There is a single living fetus in vertex presentation. The placenta is fundal. heart rate is 1 32 beats per minute (bpm). Biophysical profile performed by the technologist: breathing (30 sec sustained breathing in 30 minutes): 2 out of 2 movement (3 gross body movements in 30 minutes): 2 out of 2 tone (one episode of rvubgkt-mkszriqro-meibcqt limb movement): 2 out of 2 Amniotic fluid pocket (2 cm): 2 out of 2 Total score: 8 out of 8 IMPRESSION: 1. Single living fetus in vertex presentation. 2. Biophysical profile 8 out of 8. Reviewed, dictated and finalized at location B. ROLLER
[2021-09-05 12:00] VITALS: BP 120/66; PULSE 107
== END 2021-09-22 13:49 | disposition home or self-care (01) ==
LOC: ANHOBOP 11:18
PROVIDERS: Visit Provider Student in an Organized Health Care Education/Training Program
DX: O24.419 Gestational diabetes mellitus in pregnancy, unspecified control (principal); Z3A.32 32 weeks gestation of pregnancy; Z3A.33 33 weeks gestation of pregnancy; Z3A.34 34 weeks gestation of pregnancy; Z3A.35 35 weeks gestation of pregnancy; Z3A.36 36 weeks gestation of pregnancy; Z3A.37 37 weeks gestation of pregnancy; Z3A.38 38 weeks gestation of pregnancy
CPT/HCPCS: 59025; 76819

== ENCOUNTER 2021-09-13 05:06 | Inpatient (IN) | payer OTHER, SELFPAY ==
[2021-09-13] VITALS (80 sets, daily range): BP systolic 64–147; BP diastolic 28–96; PULSE 57–142; RESP 18–20; TEMP 36.2–36.9; O2SAT 94–100; BMI 34.4
[2021-09-13 05:39] LABS: Glucose Point of Care 119 mg/dl (65-105)
--- NOTE | 2021-09-13 05:43 | LDADM ---
This patient, Melly Gage, was admitted to Labor/Delivery/Recovery 107 on 09/13/21 at 05:06. Plans for labor, pain management and were discussed with patient. Patient/family oriented to hospital policies and general routines including ID bracelet, bed and alarms, visiting hours, pain management, procedures, bathroom and other care routines, personal items, smoking policy, room service/diet and guest tray routines, infant security routines, and visiting hours. Patient/Family are encouraged to report perceived risks to care and to ask questions if they do not understand what they are told or what they should do. See OBIX for further documentation.
[2021-09-13 05:47] LABS: Basophils Percent Auto 0.2 % (0.2-1.2); Eosinophils Absolute Auto 0.1 K/mm3 (0-0.3); Eosinophils Percent Auto 0.6 % (0-4.4); Hematocrit 33.6 % (37.0-47.0); Hemoglobin 11.3 g/dL (12.0-15.0); Immature Granulocyte Absolute 0.12 K/mm3 (0.00-0.031); Immature Granulocyte Percent A 1.4 % (0-0.5); Lymphocytes Absolute Auto 1.63 K/mm3 (0.9-3.2); Lymphocytes Percent Auto 18.6 % (18.3-44.2); Mean Corpuscular HGB Conc 33.6 g/dl (32-36); Mean Corpuscular Hemoglobin 30.7 pg (26-34); Mean Corpuscular Volume 91.3 fl (80-100); Mean Platelet Volume 11.2 fl (7.4-10.4); Monocytes Absolute Auto 0.7 K/mm3 (0.1-0.6); Monocytes Percent Auto 8.1 % (2.6-8.5); Neutrophils Absolute Auto 6.3 K/mm3 (1.3-6.7); Neutrophils Percent Auto 71.1 % (45.5-73.1); Platelet Count Result 147 k/mm3 (150-375); Red Blood Count 3.68 M/mm3 (4.2-5.4); Red Cell Distribution Width 13.6 % (11.5-14.5); White Blood Count 8.8 K/mm3 (4.5-10.0)
[2021-09-13] MEDS: LACTATED RINGERS 1,000 ML 125 ML IV CONT ×2 (05:50→10:35)
[2021-09-13] MEDS: OXYTOCIN 30 UNITS/NS 500 ML 30 UNITS/500 ML BAG IV CONT (05:50)
--- NOTE | 2021-09-13 06:07 | P.PNAN_ITS ---
Anes - Eval Pre Procedure Procedure: labor pain management Date/Time: 09/13/21 06:07 Surgeon: Zackary Preop Diagnosis: pain during labor Pre Op Diagnosis: IOL Patient Data Age: 31 Gender: F Height: 1.65 m Weight: 94 kg Last Vital Signs Pulse 96 09/13/21 06:01 BP 117/62 09/13/21 06:01 Allergies Allergy/AdvReac Type Severity Reaction Status Date / Time No Known Allergies Allergy Verified 09/05/21 12:03 Home Medications Medication Instructions Recorded Confirmed Type aspirin [Aspirin Low Dose] 81 mg PO DAILY 09/05/21 09/05/21 History prenat.vits,michael,pxa-abuk-ohzkb 1 tablet PO DAILY 09/05/21 09/05/21 History [ #2] Laboratory Tests 09/13/21 09/13/21 09/13/21 05:32 05:36 05:36 WBC 8.8 K/mm3 K/mm3 (4.5-10.0) RBC 3.68 M/mm3 L M/mm3 (4.2-5.4) Hgb 11.3 g/dL L g/dL (12.0-15.0) Hct 33.6 % L % (37.0-47.0) MCV 91.3 fl fl (80-100) MCH 30.7 pg pg (26-34) MCHC 33.6 g/dl g/dl (32-36) RDW 13.6 % % (11.5-14.5) Plt Count 147 k/mm3 L k/mm3 (150-375) MPV 11.2 fl H fl (7.4-10.4) Immature Gran % (Auto) 1.4 % H % (0-0.5) Neut % (Auto) 71.1 % % (45.5-73.1) Lymph % (Auto) 18.6 % % (18.3-44.2) [place] % (Auto) 8.1 % % (2.6-8.5) Eos % (Auto) 0.6 % % (0-4.4) Baso % (Auto) 0.2 % % (0.2-1.2) Lymph # (Auto) 1.63 K/mm3 K/mm3 (0.9-3.2) [place] # (Auto) 0.7 K/mm3 H K/mm3 (0.1-0.6) Eos # (Auto) 0.1 K/mm3 K/mm3 (0-0.3) Baso # (Auto) 0.0 K/mm3 K/mm3 (0.0-0.1) Abs Immat Gran (auto) 0.12 K/mm3 H K/mm3 (0.00-0.031) Absolute Neuts (auto) 6.3 K/mm3 K/mm3 (1.3-6.7) Absolute Nucleated RBC 0.0 K/mm3 K/mm3 (0.0-0.012) Nucleated RBC % 0.0 % % (0.0-0.2) POC Capillary Glucose 119 mg/dl H mg/dl (65-105) RPR Pending : gestational age (edc 09/13/21) Patient hx anesthesia problems: none Family hx anesthesia problems: none Results Review: All pre-operative results and documents have been reviewed as part of the pre-operative evaluation. [facility] Past Medical History Medical History (Updated 09/13/21 @ 06:07 by Aline Higginbotham CRNA) Hypertension Family History Family History Other Unknown family medical history Social History Social History Smoking status: Never smoker Substance use: never Gender identity (if verbalized by the patient): Female Spiritual care concerns: No Exam Day of Procedure 09/13/21 06:07 Patient weight: obese (bmi 34.5) Neurological: alert and oriented
[2021-09-13 07:55] LABS: HIV 1/2 Ab P24 Ag Result Negative (Negative)
[2021-09-13 08:35] LABS: Glucose Point of Care 104 mg/dl (65-105)
--- NOTE | 2021-09-13 09:22 | WPDHPUPDATE1 ---
History and Physical Update Update Date/Time: 09/13/21 09:22 31 yo at 39w1d who presents for IOL for gestational DM. Her DM has been diet controlled. Her is complicated by h/o preeclampsia on ASA this , h/o GDM, marginal cord insertion. History and Physical has been reviewed, including an updated exam of the patient. There are NO changes in the patient's condition. Risks, benefits, and alternatives have been discussed and questions answered. Patient agrees to proceed with procedure. A/P: admit to L&D routine admission orders diet controlled GDM, will monitor BS pitocin IOL will AROM for augmentation BP wnl, continue to monitor FHT cat 1 continuous EFM
[2021-09-13] MEDS: PHENYLEPHRINE 1,000 MCG/10 ML SYRINGE 100 MCG IV PUSH (10:42)
[2021-09-13] MEDS: ONDANSETRON INJ 4 MG/2 ML VIAL IV PUSH (10:45)
[2021-09-13 10:58] LABS: Rapid Plasma Reagin Non-Reactive (NonReactive)
[2021-09-13 12:07] LABS: Glucose Point of Care 93 mg/dl (65-105)
--- NOTE | 2021-09-13 12:52 | PM.OBPRVD ---
OB - Delivery Note Procedure Procedure: Patient pushed for a spontaneous vaginal delivery. The fetus was delivered atraumatically and placed on the maternal abdomen. The cord was clamped and cut after 1 minute of life. The cord was double clamped and cut and a segment of cord was collected for cord gases. Cord blood was collected for blood type and Coomb's testing. The placenta delivered spontaneously and was noted to be intact. The perineum was inspected and there was a 2nd degree perineal laceration. The laceration was repaired with 3-0 vicryl in the usual fashion. The uterus was firm and good hemostasis was noted. The patient and fetus were stable in the delivery room. events: Gestational Diabetes Intrapartal events: None Induction method: per pitocin protocol Delivery augmentation: rupture of membranes Delivery monitor: external FHT Route of delivery: Episiotomy description: None Laceration Description: Perineal - 2nd Degree Delivery repair: vicryl Specimen: No Quantitative Blood Loss (ml): 200 Anesthesia type: Epidural Disposition: floor () Complications: No immediate complications [place] Baby Date of : 09/13/21 Time of : 12:40 Weeks of gestation at delivery: 39 gender: Female Weight (pounds): 7 Weight (ounces): 11 presentation: vertex position: Right Occiput Anterior Placenta delivery description: Spontaneous cord vessel description: 3 Vessels score one minute: 9 score five minutes: 9
[2021-09-13] MEDS: OXYTOCIN 30 UNITS/NS 500 ML 30 UNITS/500 ML BAG 125 UNITS IV CONT (13:13)
[2021-09-13] MEDS: BENZOCAINE 20% AER SPR (*SP) 56 GM CAN 1 SPRAY TOPICAL (15:49)
[2021-09-13] MEDS: WITCH HAZEL 40 PADS 1 PAD TOPICAL (15:49)
[2021-09-13] MEDS: DOCUSATE SODIUM 100 MG CAPSULE PO (16:09)
[2021-09-13] MEDS: IBUPROFEN 600 MG TABLET PO (16:09)
--- NOTE | 2021-09-13 16:47 | OBPPTRN ---
1529 Patient transferred to post room #286 via W/C. Support person present. Oriented to unit, room, information board, rooming in, admission packet and security measures. Patient verbalizes understanding.
[2021-09-14] MEDS: ACETAMINOPHEN 325 MG TABLET 650 MG PO (01:23)
[2021-09-14] MEDS: IBUPROFEN 600 MG TABLET PO ×2 (01:23→11:18)
[2021-09-14 04:14] VITALS: BP 108/74; PULSE 82; RESP 18; TEMP 36.7
[2021-09-14 05:18] LABS: Hemoglobin 10.2 g/dL (12.0-15.0)
--- NOTE | 2021-09-14 07:41 | WPDANLDPN2 ---
Anes-Prog Note L&D Date/Time: 09/14/21 07:41 Comfortable throughout: labor and delivery Neuraxial method: epidural Epidural/Spinal procedure site: clean & non-tender Neuro status: Neuro function grossly intact. Cardiovascular status: normal Respiratory status: normal Airway patency: baseline Mental status: baseline Post-Op hydration status: normal Vital Signs: Last Vital Signs Temp 36.7 C 09/14/21 04:14 Pulse 82 09/14/21 04:14 Resp 18 09/14/21 04:14 BP 108/74 09/14/21 04:14 Pulse Ox 100 09/13/21 12:27 Pain score (VAS): 10/03 I/O: Intake & Output 09/13/21 09/13/21 09/14/21 15:59 23:59 07:59 Intake Total 1900 500 Balance 1900 500 Post-procedural complaints: none Patient feedback: Patient satisfied with anesthetic care.
--- NOTE | 2021-09-14 07:52 | P.DS_ITS ---
DS: Admitting Diagnosis Discharge Date 09/14/21 Admitting Diagnosis intrauterine at term gestational diabetes h/o preeclampsia OB - DS: Summary OB Procedures : None OB Procedures Intrapartum: Spontaneous Vag Delivery OB Procedures: : None Status at Discharge Functional status at discharge: independent ambulation Overall status at discharge: patient is back to baseline Time Spent with Patient Time attestation: Total time spent providing and/or coordinating discharge services: Time spent: Less than 30 minutes Exam Const: General: comfortable and no acute distress Resp: Effort & Inspection: normal respiratory effort Auscultation: clear to auscultation bilaterally Cardio: Rate: regular rate GI: GI Palp: Yes Soft to palpation Auscultation: normal bowel sounds Other: Fundus firm below umbilicus Psych: Appearance: grossly normal Mental Status: mental status grossly normal Affect: normal affect DS: Data Data Completed and Pending Labs on day of discharge: Labs from last 24 hours 09/14/21 09/14/21 09/13/21 03:44 03:44 12:04 Hgb 10.2 L Hct 31.0 L POC Capillary Glucose 93 RPR HIV 1&2 Ab/P24 Ag 4thGn Blood Type O Negative Antibody Screen TNP Screen Negative Baby's Blood Type O pos Baby's ISAEL Negative Doses of RhIg Required 1 09/13/21 09/13/21 09/13/21 08:33 06:54 05:36 Hgb Hct POC Capillary Glucose 104 RPR Non-reactive HIV 1&2 Ab/P24 Ag 4thGn Negative Blood Type Antibody Screen Screen Baby's Blood Type Baby's ISAEL Doses of RhIg Required Discharge Plan Discharge Discharging Clinician: William Raymundo Patient Disposition: Home, Self-Care Activity: as tolerated and pelvic rest Diet: regular Patient Instructions: Antibiotic Form, Vaginal Delivery (DC) Stand Alone Forms: General Discharge Information Follow-up/Referrals: William Raymundo MD [Physician] - 4 Weeks Discharge Medications: New polysaccharide iron complex 150 mg iron Capsule 150 mg PO BIDWM Qty: 60 RF: 0 acetaminophen [Mapap (acetaminophen)] 325 mg Tablet 650 mg PO Q6H PRN (Reason: Mild Pain (1-3) Or Headache) Qty: 30 RF: 0 ibuprofen 600 mg Tablet 600 mg PO Q6H PRN (Reason: Cramping) Qty: 30 RF: 0 Continued #2 Tablet 1 tablet PO DAILY RF: 0 Discontinued aspirin [Aspirin Low Dose] 81 mg Tablet,Delayed Release (Dr/Ec) 81 mg PO DAILY RF: 0 Date of admission: 09/13/21 05:06 Primary Care Provider: PHYSICIAN,VICTIMS ADVOCATE CLERK/SPECIALIST Admitting Provider: William Raymundo Attending physician on admission: William Raymundo Condition: Stable
[2021-09-14 08:00] VITALS: BP 133/72; PULSE 84; RESP 18; TEMP 37.3; O2SAT 97
[2021-09-14] MEDS: RHO(D) IMMUNE GLOBULIN 300 MCG/2 ML SYRINGE IM (09:53)
--- NOTE | 2021-09-14 10:30 | PC.NURSE ---
Patient viewed the discharge video Mother & Baby Care, The First Two Weeks . Patient was given the opportunity and encouraged to ask questions. Patient verbalized understanding of information shared and has been given the mother/baby guide for home reference.
[2021-09-14 11:48] VITALS: BP 121/73; PULSE 85; RESP 18; TEMP 37.2; O2SAT 98
[2021-09-15 08:33] VITALS: BP 122/80; PULSE 82; RESP 20; TEMP 37.2; O2SAT 100
== END 2021-09-14 14:40 | disposition home or self-care (01) | DRG 560 ==
LOC: ANHLDR 05:08 → ANHOB2 16:16
PROVIDERS: Admitting Provider Student in an Organized Health Care Education/Training Program; Visit Provider Student in an Organized Health Care Education/Training Program
DX: O24.420 Gestational diabetes mellitus in childbirth, diet controlled (principal); Z37.0 Single live birth; Z3A.39 39 weeks gestation of pregnancy; O70.1 Second degree perineal laceration during delivery; Z86.79 Personal history of other diseases of the circulatory system
CPT/HCPCS: 36415; 82948; 85014; 85018; 85025; 85461; 86592; 86703; 86850; 86900; 86901; 90384; A9270; G0432; J2370; J2405; J2590; J2790; J2795; J7120

== ENCOUNTER → 2021-11-07 03:05 | Outpatient (CLI) | payer OTHER, SELFPAY ==
[2021-11-07 17:26] LABS: SARS-CoV-2 RNA PCR Negative
== END ==
PROVIDERS: Visit Provider Student in an Organized Health Care Education/Training Program
DX: Z01.812 Encounter for preprocedural laboratory examination (principal); Z20.822 Contact with and (suspected) exposure to COVID-19
CPT/HCPCS: 36415; 85014; 85018; C9803; U0003; U0005

== ENCOUNTER 2021-11-07 09:08 | Outpatient (CLI) | payer OTHER, SELFPAY ==
[2021-11-07 09:40] LABS: Hematocrit 40.3 % (37.0-47.0); Hemoglobin 13.1 g/dL (12.0-15.0)
== END 2021-11-07 09:09 | disposition home or self-care (01) ==
LOC: ANHSURGERY 09:13
PROVIDERS: Anesthesiology; Visit Provider Student in an Organized Health Care Education/Training Program
DX: D64.9 Anemia, unspecified (principal); Z01.818 Encounter for other preprocedural examination
CPT/HCPCS: 36415; 85014; 85018

== ENCOUNTER 2021-11-10 00:30 | Day surgery (SDC) | payer OTHER, SELFPAY ==
[2021-11-01 09:43] VITALS: BMI 31.1
--- NOTE | 2021-11-01 09:52 | PC.NURSE ---
covid test 11/07/21 @ 0900 Report to the Outpatient Waiting Room, entrance under the green pavilion located off [facility], at time 1100 on date 11/10/21. OR Time: 1300. - You will be asked a series of questions to screen for COVID 19 for your protection. - A mask is required within the hospital. - No visitors are allowed at this time. Preoperative COVID Testing Requirements: No COVID Test needed if: (proof is required; if not received patient will have Rapid Test prior to entry) - Patient has received COVID Vaccine at least 14 days prior to procedure date or - Patient has positive COVID test result within last 90 days of surgery date. COVID Test needed if above criteria is not met If not COVID vaccinated a COVID test must be conducted within 72 hours of surgery and patient is asked to isolate self from time of testing until procedure. You will go to the [facility] for your COVID testing. The [facility] is located at the corner of [address] [facility]. You will only be called if COVID results are positive and your surgeon may reschedule your elective surgery date. Patients may have clear liquids (water, carbonated beverages, clear teas, apple juice) until 3 hours prior to surgery with a maximum of 20 ounces. - No food from midnight until time of surgery - Infants may have breast milk until 4 hours before surgery, infant formula 6 hours prior to surgery. - Children will be allowed to drink immediately following surgery. If applicable, please bring a bottle or sippy cup to assist with drinking. Juice, water, soda, and popsicles are readily available. For infants on formula, please bring formula the day of surgery. Pacifiers are allowed. Take the following medications with a SIP of water the morning of surgery: Medications to discontinue per physician Date to take last dose Please no make-up, nail italian, hairspray, perfume, deodorant, or body powder the day of surgery. No jewelry (including any body piercings) or valuables the day of surgery, leave them at home. Please take a shower or bath the night before, or the morning of, surgery with an antibacterial soap. Wear comfortable, loose fitting clothing. Children are encouraged to wear pajamas. - Jewelry must be removed prior to entering the operating room. Rings and piercings that are not removed may be cut off. - The hospital will not accept responsibility for valuables. - Please leave all valuables, including medications, at home the day of surgery. If you are going home after surgery, a licensed garbage truck driver must drive you home. - NO public transportation without another adult. - We recommend that an adult stay with you for 24 hours following discharge. - We also recommend that you do not drive, make important decision, drink alcoholic beverages, or take any drugs that were not prescribed by your health care provider for at least 24 hours after your discharge time. For Pediatric surgeries, we recommend two adults accompany the child home (only one inside the building at this time). Follow any additional instructions given to you from your surgeon. Telephone instructions given to patient and asked if any additional questions and then verbalized understanding. Patient advised to call surgeon office or pre surgery nurse liaison [phone] if any additional questions.
[2021-11-10] VITALS (8 sets, daily range): BP systolic 122–137; BP diastolic 78–93; PULSE 78–110; RESP 12–18; TEMP 36.3–36.6; O2SAT 96–100
--- NOTE | 2021-11-10 10:01 | PM.IMHP ---
H&P: HPI History of Present Illness Date/Time: 11/10/21 10:01 Chief Complaint: encounter for permanent sterilization Narrative: 31 yo who presents for laparoscopic bilateral salpingectomy for permanent sterilization. Pt is after vaginal delivery on 09/13/21. She elects for interval tubal ligation. Review of Systems Cardiovascular: Cardiovascular: Denies chest pain, Denies leg edema, Denies palpitations, Denies dyspnea and Denies dyspnea on exertion Respiratory: Respiratory: Denies cough, Denies dyspnea and Denies dyspnea on exertion Gastrointestinal: Gastrointestinal: Denies abdominal pain, Denies constipation, Denies diarrhea, Denies nausea and Denies vomiting Genitourinary: Genitourinary: Denies hematuria, Denies urinary frequency, Denies dysuria, Denies pelvic pain, Denies urinary incontinence and Denies vaginal discharge Neurologic: Reports system reviewed and no additional complaints, except as documented Psychiatric: Psychiatric: Reports no additional psychiatric complaints Endocrine: Endocrine: Denies palpitations [facility] Past Medical History Medical History (Updated 11/10/21 @ 10:03 by William Raymundo MD) Hypertension Family History Family History Other Unknown family medical history Social History Social History Smoking packs per day: 1.5 Smoking cigarettes per day: 30.0 Years smoked: 6 Smoking pack-years: 9.00 Smoking status: Former smoker Tobacco type: cigarettes Smoking end date: 03/06/09 Alcohol intake: current Alcohol use details: 1 glass a wine a month Substance use: never Substance use type: does not use Last use: 2008 Living arrangements: with family Gender identity (if verbalized by the patient): Female Spiritual care concerns: No Meds Home Medications and Allergies Home Medications Medication Instructions Recorded Confirmed Type polysaccharide iron complex 150 mg PO DAILY 11/01/21 11/01/21 History Allergies Allergy/AdvReac Type Severity Reaction Status Date / Time No Known Allergies Allergy Verified 11/01/21 09:41 Exam Const: General: no acute distress Eyes: EOM: EOMs intact bilaterally Neck: Neck: supple Thyroid: thyroid normal Chest: Breast/axilla inspection: normal inspection of the breasts Breast/axilla palpation: normal palpation of the breasts, normal palpation of the axillae and no axillary lymphadenopathy Resp: Effort & Inspection: normal respiratory effort Auscultation: clear to auscultation bilaterally Cardio: Rate: regular rate Rhythm: regular rhythm GI: Inspection: non-distended GI Palp: Yes Soft to palpation, No Tenderness to palpation present (GI) and No Guarding due to palpation present (GI) Auscultation: normal bowel sounds : General: No bladder normal to palpation External Female Exam: normal external appearance Speculum Exam - Vagina: normal vaginal discharge and No vaginal bleeding Speculum Exam - Cervix: nontender Bimanual exam- vagina & uterus: No bladder normal to palpation and No Cervical tenderness present OB/external & speculum: No vaginal bleeding Skin: General skin exam: normal color and no rashes or lesions noted Neuro: Cognition (Neuro): normal cognition Speech: normal speech Extrem: General: normal to inspection and no edema Psych: Mental Status: mental status grossly normal Affect: normal affect Assessment and Plan Assessment and plan (1) Encounter for sterilization: Code(s): Z30.2 - Encounter for sterilization Status: Acute Assessment and Plan: pt requests permanent sterilization pt is after vaginal delivery on 09/13/21 plan for laparoscopic bilateral salpingectomy
--- NOTE | 2021-11-10 12:24 | WPDANESEPPF ---
Anes - Initial Pre Proc Eval Procedure: Operation Date: 11/10/21 13:00 Proposed Procedures p Laparoscopic Bilateral Salpingectomy - William Raymundo MD Date/Time: 11/10/21 12:24 Surgeon: William Raymundo MD Pre Op Diagnosis: desires sterilization Patient Data Age: 31 Gender: F Height: 1.65 m Weight: 83.4 kg Last Vital Signs Temp 36.6 C 11/10/21 12:05 Pulse 96 11/10/21 12:05 Resp 18 11/10/21 12:05 BP 122/86 11/10/21 12:05 Pulse Ox 99 11/10/21 12:05 Allergies Allergy/AdvReac Type Severity Reaction Status Date / Time No Known Allergies Allergy Verified 11/10/21 12:10 Home Medications Medication Instructions Recorded Confirmed Type polysaccharide iron complex 150 mg PO DAILY 11/01/21 11/10/21 History Patient hx anesthesia problems: none Family hx anesthesia problems: none Results Review: All pre-operative results and documents have been reviewed as part of the pre-operative evaluation. [facility] Past Medical History Medical History (Updated 11/10/21 @ 10:03 by William Raymundo MD) Hypertension Family History Family History Other Unknown family medical history Social History Social History Smoking packs per day: 1.5 Smoking cigarettes per day: 30.0 Years smoked: 6 Smoking pack-years: 9.00 Smoking status: Former smoker Tobacco type: cigarettes Smoking end date: 03/06/09 Alcohol intake: current Alcohol use details: 1 glass a wine a month Substance use: never Substance use type: does not use Last use: 2008 Living arrangements: with family Gender identity (if verbalized by the patient): Female Spiritual care concerns: No Anes - Eval Final PreProcedure Day of Procedure 11/10/21 12:24 Patient weight: obese Heart: regular rate and rhythm Lungs: clear to auscultation and normal air movement Airway: Mallampati scale class II Neurological: alert and oriented Last oral intake: >/= 8 hours ASA classification: II Emergent: no Anesthetic plan: proceed Anesthesia type and monitoring: general ETT Results Review: All pre-operative results and documents have been reviewed as part of the pre-operative evaluation. Informed Consent: The patient's anesthetic plan and its attendant risks and benefits were discussed with the patient/family/POA. Questions were solicited and answers provided to the satisfaction of the patient/family/POA.
[2021-11-10] MEDS: ACETAMINOPHEN 500 MG TABLET 1000 MG PO (12:26)
[2021-11-10] MEDS: LACTATED RINGERS 1,000 ML 30 ML IV CONT (12:27)
[2021-11-10] MEDS: KETOROLAC 15 MG/ML VIAL (*BKC) IV PUSH (12:27)
--- NOTE | 2021-11-10 12:50 | WPDHPUPDATE1 ---
History and Physical Update Update Date/Time: 11/10/21 12:50 History and Physical has been reviewed, including an updated exam of the patient. There are NO changes in the patient's condition. Risks, benefits, and alternatives have been discussed and questions answered. Patient agrees to proceed with procedure.
--- NOTE | 2021-11-10 13:35 | P.OP_ITS ---
Procedure Note - Detailed Date of Procedure 11/10/21 Pre-op Diagnosis desires sterilization Post-op Diagnosis same Procedure Performed laparoscopic bilateral salpingectomy Surgeon William Raymundo MD Anesthesia general Indications desires permanent sterilization Findings normal appearing uterus, bilateral fallopian tubes and ovaries Description of Procedure the patient was taken to the operating room where general endotracheal anesthesia was undertaken and found to be adequate. She was then prepped and draped in the dorsal lithotomy position. A pre-operative team brief and time- out were completed. A catheter was placed to drain the bladder. Speculum was placed in the vagina and the cervix was identified. An acorn uterine manipulator was placed as well as single-tooth tenaculum on the anterior lip of the cervix. Attention was then turned to the abdomen which was anesthetized umbilical he with injected anesthetic. A 5 mm skin incision was made in the umbilicus. A 5 mm optical trocar was then placed with direct visualization of the abdominal layers during placement. The trocar stylette was removed and the camera was used to verify intra-abdominal placement.jeana was used to verify intra-abdominal placement. CO2 insufflation was then connected and The abdominal cavity was insufflated. General abdominal and pelvic survey was performed. Two other laparoscopic port site incisions were made approximately 2 cm superior and medial of the ASIS bilaterally. Both fallopian tubes were inspected and identified out to the level of the fimbriae. The Fimbriated end of the left fallopian tube was then grasped with a blunt grasper. the fallopian tube was then transected along its inferior aspect along the mesosalpinx with the LigaSure device. Transection was carried out to the fallopian tubes insertion into the uterine fundus. The fallopian tube was then completely transected from the uterus using the LigaSure device. This procedure was repeated for the right fallopian tube. Good hemostasis was maintained throughout. The transected fgh the 5 mm laparoscopic portrom the abdomen through the 5 mm laparoscopic port. The surgical field was inspected and again could hemostasis was noted. At this point the procedure was ended. The abdomen was desufflated. All laparoscopic ports were removed from the abdomen. Abdominal incisions were closed with 4-0 Vicryl in a subcuticular fashion.. The acorn manipulator and tenaculum weere removed from the vagina. The cervix was inspected and good hemostasis was obtained. Sponge, lap and needle counts were correct. The patient tolerated the procedure well. The patient was taken out of dorsal lithotomy. anesthesia was reversed. The patient was taken to PACU in stable condition. Urine Output 50 Drains No Packing No Pathology yes ( Bilateral fallopian tubes) Complications No immediate complications Condition stable Disposition PACU
[2021-11-10] MEDS: oxyCODONE HCL (*CRX) 5 MG TAB IR PO (14:30)
== END 2021-11-10 15:10 | disposition home or self-care (01) ==
PROVIDERS: Visit Provider Student in an Organized Health Care Education/Training Program
PROC: (CPT 49320; principal; 2021-11-10 13:00)
DX: Z30.2 Encounter for sterilization (principal); Z87.891 Personal history of nicotine dependence; E66.9 Obesity, unspecified; Z68.30 Body mass index [BMI] 30.0-30.9, adult
CPT/HCPCS: 58661; 88302; A9270; J0330; J1100; J1885; J2250; J2405; J2704; J3010; J7030; J7120

== ENCOUNTER 2022-03-10 16:03 | Emergency (ER) | payer OTHER, SELFPAY ==
[2022-03-10] VITALS (18 sets, daily range): BP systolic 132–145; BP diastolic 88–101; PULSE 77–125; RESP 16–18; TEMP 36.5; O2SAT 97–100
--- NOTE | ~2022-03-10 | CT_ITS ---
EXAMINATION: CT abdomen pelvis wo con DATE: 03/10/2022 17:09 INDICATION: Abdominal pain. Blood in stool. TECHNIQUE: Computed tomography (CT) of the abdomen and pelvis was performed without intravenous contr ast. Automated exposure control and iterative reconstruction technique were employed. The dose-length product was 526.34 mGy-cm. COMPARISON: None. FINDINGS: The visualized portions of the lung bases are clear without pneumonia or pleural effusion. The heart size is normal. No pericardial effusion. The liver, gallbladder, spleen, pancreas, and left adrenal gland are normal. There is a 1.8 cm mass in right adrenal gland measuring low attenuation, c onsistent with an adenoma. The kidneys are normal. There is no urolithiasis. There are no dilated loo ps of bowel. The appendix is not visualized. There are no pathologically enlarged lymph nodes. There is no free intraperitoneal fluid. There is thoracolumbar levoscoliosis and mild spondylosis. IMPRESSION: 1. No etiology for the patient's symptoms. Reviewed, dictated and finalized at location B.
[2022-03-10 16:28] LABS: Basophils Percent Auto 0.2 % (0.2-1.2); Eosinophils Absolute Auto 0.2 K/mm3 (0-0.3); Eosinophils Percent Auto 1.2 % (0-4.4); Hematocrit 38.7 % (37.0-47.0); Hemoglobin 12.6 g/dL (12.0-15.0); Immature Granulocyte Absolute 0.05 K/mm3 (0.00-0.031); Immature Granulocyte Percent A 0.4 % (0-0.5); Lymphocytes Absolute Auto 2.21 K/mm3 (0.9-3.2); Mean Corpuscular HGB Conc 32.6 g/dl (32-36); Mean Corpuscular Hemoglobin 29.1 pg (26-34); Mean Corpuscular Volume 89.4 fl (80-100); Mean Platelet Volume 10.4 fl (7.4-10.4); Monocytes Absolute Auto 0.8 K/mm3 (0.1-0.6); Monocytes Percent Auto 5.9 % (2.6-8.5); Neutrophils Absolute Auto 9.8 K/mm3 (1.3-6.7); Neutrophils Percent Auto 75.3 % (45.5-73.1); Platelet Count Result 310 k/mm3 (150-375); Red Blood Count 4.33 M/mm3 (4.2-5.4); Red Cell Distribution Width 13.1 % (11.5-14.5)
[2022-03-10 16:37] LABS: Lipase 107 U/L (23-300)
[2022-03-10 16:40] LABS: INR 1.1; Prothrombin Time 13.6 Seconds (11.1-14.7)
[2022-03-10 16:41] LABS: Partial Thromboplastin Time 29.6 SECONDS (22.3-36.8)
[2022-03-10 16:42] LABS: Alanine Aminotransferase 14 U/L (6-35); Albumin Level 4.7 g/dL (3.5-5.1); Alkaline Phosphatase 99 U/L (38-126); Anion Gap 8 mmol/L (8-16); Aspartate Amino Transferase 22 U/L (14-36); Bilirubin,Total < 0.1 mg/dL (0.2-1.3); Blood Urea Nitrogen 15 mg/dL (7-17); Carbon Dioxide 29 mmol/L (22-30); Chloride 106 mmol/L (98-107); Estimated CRCL calculation 104 ml/min; Estimated Glomerular Filt Rate > 60; Glucose 117 mg/dL (65-110); Potassium 3.9 mmol/L (3.4-5.0); Sodium 143 mmol/L (137-145)
[2022-03-10] MEDS: SODIUM CHLORIDE 0.9% IV 1,000 ML 999 ML IV CONT (16:42)
--- NOTE | 2022-03-10 17:10 | ED.GIBLEED ---
HPI - GI Bleed General Chief complaint: GI Bleed Stated complaint: Blood In Stool Time Seen by Provider: 03/10/22 16:13 Source: patient Mode of arrival: ambulatory Limitations: no limitations History of Present Illness HPI Narrative: This is a 31 year old female that presents to the ER for crampy LLQ abdominal pain present today. Associated with bright red blood noted in the toilet. Denies fever, vomiting or dysuria. Related Data Home Medications Medication Instructions Recorded Confirmed polysaccharide iron complex 150 mg 150 mg PO DAILY 11/01/21 11/10/21 iron capsule Allergies Allergy/AdvReac Type Severity Reaction Status Date / Time No Known Allergies Allergy Verified 11/10/21 12:10 Review of Systems Review of Systems: CONSTITUTIONAL: Denies fever GASTROINTESTINAL: Report abdominal pain. Denies nausea, vomiting, or diarrhea. GENITOURINARY: Denies dysuria or hematuria. All systems reviewed & are unremarkable except as noted in HPI and below PMFSH Past Medical History Medical History (Updated 03/10/22 @ 18:40 by Katey Breaux PA-C) Hypertension Surgical History Surgical History (Updated 03/10/22 @ 17:13 by Katey Breaux PA-C) History of bilateral salpingectomy Family History Family History Other Unknown family medical history Social History Social History Smoking packs per day: 1.5 Smoking cigarettes per day: 30.0 Years smoked: 6 Smoking pack-years: 9.00 Smoking status: Former smoker Tobacco type: cigarettes Smoking end date: 03/06/09 Alcohol intake: current Alcohol use details: 1 glass a wine a month Substance use: never Substance use type: does not use Last use: 2008 Gender identity (if verbalized by the patient): Female Spiritual care concerns: No Exam Narrative: GENERAL: Well-appearing, well-nourished, and in no acute distress. HEAD: Normocephalic, atraumatic. EYES: EOMI. CHEST: Clear to auscultation. No respiratory distress. No wheezes rales or rhonchi HEART: Regular rate and rhythm. No murmur heard. Normal peripheral pulses. ABDOMEN: Soft, nondistended, normal active bowel sounds. Tender to palpation in the left side of the abdomen, without guarding. No CVA tenderness EXTREMITIES: Normal range of motion. No edema. SKIN: Warm, dry, no rash. NEURO: No focal deficits. Alert and oriented x3. PSYCH: Normal mood and affect RECTAL: Small fissure noted. No active bleeding. Hemoccult positive Course Vital Signs Vital signs: Vital Signs Temperature 97.7 F 03/10/22 16:04 Pulse Rate 125 H 03/10/22 16:04 Respiratory Rate 16 03/10/22 16:04 Blood Pressure 132/98 H 03/10/22 16:04 Pulse Oximetry 100 03/10/22 16:04 Temperature 97.7 F 03/10/22 16:04 Pulse Rate 0 L 03/10/22 16:32 Respiratory Rate 16 03/10/22 16:04 Blood Pressure 132/90 03/10/22 17:01 Pulse Oximetry 98 03/10/22 18:19 MDM - GI Bleed MDM Narrative Medical decision making narrative: Patient presents to the ER for crampy abdominal pain and blood in the stool. She is afebrile and nontoxic-appearing. Tachycardic upon arrival, this normalized with IV fluid administration. CBC with leukocytosis to 13. Metabolic panel and lipase without concerning findings. CT scan of the abdomen and pelvis is without concerning findings. Patient is Hemoccult positive. Patient will be started are oral antibiotics for possible infectious colitis based on symptoms and exam. Will be given primary care doctor and gastroenterology for follow-up. She was given warnings to return to the ER Lab Data Attestation: I reviewed the patient's lab results. Result diagrams: 03/10/22 16:03/10/22 16:22 Labs: Lab Results 03/10/22 03/10/22 03/10/22 Range/Units 16:22 16:22 16:22 WBC 13.0 H (4.5-10.0) K/mm3 RBC 4.33 (4.2-5
== END 2022-03-10 18:57 | disposition home or self-care (01) ==
PROVIDERS: Physician Assistant; Emergency Provider Emergency Medicine
DX: K52.9 Noninfective gastroenteritis and colitis, unspecified (principal); K92.1 Melena; R10.32 Left lower quadrant pain; I10 Essential (primary) hypertension; Z87.891 Personal history of nicotine dependence
CPT/HCPCS: 36415; 74176; 80053; 83690; 85025; 85610; 85730; 86850; 86900; 86901; 96361; 96365; 99284; J0131; J7030

== ENCOUNTER 2022-10-13 00:53 | Day surgery (SDC) | payer OTHER, SELFPAY ==
[2022-10-04 11:01] VITALS: BMI 25.7
--- NOTE | 2022-10-04 11:04 | PC.NURSE ---
Report to the Outpatient Waiting Room, entrance under the green pavilion located off [facility], at time 12:30 on date 10/13/22. Planned Procedure Time: 2:30. Time changes happen often and if your time is changed the preop area will call you the afternoon before. - You and your visitor will be asked to self-screen and do not enter if you have any COVID symptoms. - Only one visitor is requested with a max of two and NO children visitors are allowed at this time. - The patient visitor may be requested to leave or wait in car when not with patient due to distancing restrictions. - A mask is REQUIRED within the hospital. Patients may have clear liquids (water, carbonated beverages, clear teas, apple juice) until 3 hours prior to surgery with a maximum of 20 ounces. - No food from midnight until time of surgery Take the following medications with a SIP of water the morning of surgery: N/A Medications to discontinue per physician: N/A Date to take last dose: N/A Please no make-up, nail uzbek, hairspray, perfume, deodorant, or body powder the day of surgery. No jewelry (including any body piercings) or valuables the day of surgery, leave them at home. Please take a shower or bath the night before, or the morning of, surgery with an antibacterial soap. Wear comfortable, loose fitting clothing. - Jewelry must be removed prior to entering the operating room. Rings and piercings that are not removed may be cut off. - The hospital will not accept responsibility for valuables. - Please leave all valuables, including medications, at home the day of surgery. If you are going home after surgery, a licensed feeder driver must drive you home. - NO public transportation without another adult if you receive anesthesia. - We recommend that an adult stay with you for 24 hours following discharge. - We also recommend that you do not drive, make important decision, drink alcoholic beverages, or take any drugs that were not prescribed by your health care provider for at least 24 hours after your discharge time. Follow any additional instructions given to you from your surgeon. If you or anyone in your household have experienced Covid symptoms in the past week, please notify your surgeon or the nurse liaison at the phone number below for possible testing. Telephone instructions given to PT - LEENA BYRD and asked if any additional questions and then verbalized understanding. Patient advised to call surgeon office or pre surgery nurse liaison [phone] if any additional questions.
--- NOTE | 2022-10-11 06:43 | P.HP_ITS ---
H&P: HPI History of Present Illness Date/Time: 10/11/22 06:43 Chief Complaint: vaginal bleeding Narrative: since 32-year-old multiparous patient who is admitted for hysteroscopy/ dilatation curettage/ a nerve ablation. She has had both tubes removed. She has had continued heavy bleeding despite medical therapy. Risks and benefits were reviewed in great detail. She received the [facility] handouts entitled hyst eroscopy and dilatation curettage respectively. She received the Cindy handout and had all questions answered and asked to proceed PMFSH Past Medical History Medical History (Updated 10/11/22 @ 06:45 by Logan Webber MD) Hypertension Surgical History Surgical History (Updated 03/10/22 @ 17:13 by Katey Breaux PA-C) History of bilateral salpingectomy Family History Family History Other Unknown family medical history Social History Social History Smoking packs per day: 1.5 Smoking cigarettes per day: 30.0 Years smoked: 6 Smoking pack-years: 9.00 Smoking status: Never smoker Tobacco type: cigarettes Smoking end date: 03/06/09 Alcohol intake: never Alcohol use details: 1 glass a wine a month Substance use: never Substance use type: does not use Last use: 2008 Living arrangements: with family Additional living arrangements comments: CHILDREN Gender identity (if verbalized by the patient): Female Spiritual care concerns: No Meds Home Medications and Allergies Home Medications Medication Instructions Recorded Confirmed Type No Home Medications 10/04/22 10/04/22 History Allergies Allergy/AdvReac Type Severity Reaction Status Date / Time No Known Allergies Allergy Verified 10/04/22 11:00 Exam Const: General: cooperative, healthy appearing, comfortable and overweight Orientation/consciousness: oriented to person, oriented to place and oriented to time HENMT: Head: normal to inspection Resp: Effort & Inspection: normal respiratory effort Cardio: Rate: regular rate Rhythm: regular rhythm Heart sounds: S1 normal heart sound present and S2 normal heart sound present GI: Inspection: normal to inspection Auscultation: normal bowel sounds : External Female Exam: normal external appearance Speculum Exam - Vagina: normal appearance of the vagina Speculum Exam - Cervix: normal appearance of the cervix Bimanual exam- vagina & uterus: enlarged Bimanual Exam- Adnexa, other: normal adnexae Assessment and Plan Assessment and plan (1) Excessive vaginal bleeding: Code(s): N93.9 - Abnormal uterine and vaginal bleeding, unspecified Status: Acute Plan hysteroscopy/ dilatation and curettage/Cindy ablation
--- NOTE | 2022-10-13 07:07 | WPDHPUPDATE1 ---
History and Physical Update Update Date/Time: 10/13/22 07:07 History and Physical has been reviewed, including an updated exam of the patient. There are NO changes in the patient's condition. Risks, benefits, and alternatives have been discussed and questions answered. Patient agrees to proceed with procedure.
[2022-10-13 10:36] VITALS: BP 112/73; PULSE 78; RESP 20; TEMP 36.4; O2SAT 100
[2022-10-13] MEDS: ACETAMINOPHEN 500 MG TABLET 1000 MG PO (10:40)
[2022-10-13] MEDS: LACTATED RINGERS 1,000 ML 30 ML IV CONT (11:05)
[2022-10-13 11:16] LABS: Hematocrit 36.9 % (37.0-47.0); Hemoglobin 11.7 g/dL (12.0-15.0)
--- NOTE | 2022-10-13 11:17 | P.PNAN_ITS ---
Anes - Initial Pre Proc Eval Procedure: Operation Date: 10/13/22 12:30 Proposed Procedures p Hysteroscopy Dilation and Curettage, Cindy Endometrial Ablation - Logan Webber MD Date/Time: 10/13/22 11:17 Surgeon: Logan Webber MD Pre Op Diagnosis: irregular bleeding Patient Data Age: 32 Gender: F Height: 1.65 m Weight: 70.5 kg Last Vital Signs Temp 36.4 C L 10/13/22 10:36 Pulse 78 10/13/22 10:36 Resp 20 10/13/22 10:36 BP 112/73 10/13/22 10:36 Pulse Ox 100 10/13/22 10:36 O2 Del Method Room Air 10/13/22 10:36 Allergies Allergy/AdvReac Type Severity Reaction Status Date / Time No Known Allergies Allergy Verified 10/13/22 10:38 Home Medications Medication Instructions Recorded Confirmed Type hydrocodone 5 mg-acetaminophen 325 1 tablet PO Q4H PRN pain #20 tabs 10/13/22 Rx mg tablet Laboratory Tests 10/13/22 11:03 Hgb Pending Hct Pending Patient hx anesthesia problems: none Family hx anesthesia problems: none Results Review: All pre-operative results and documents have been reviewed as part of the pre-operative evaluation. [facility] Past Medical History Medical History Hypertension Surgical History Surgical History History of bilateral salpingectomy Family History Family History Other Unknown family medical history Social History Social History Smoking packs per day: 1.5 Smoking cigarettes per day: 30.0 Years smoked: 6 Smoking pack-years: 9.00 Smoking status: Never smoker Tobacco type: cigarettes Smoking end date: 03/06/09 Alcohol intake: never Alcohol use details: 1 glass a wine a month Substance use: never Substance use type: does not use Last use: 2008 Living arrangements: with family Additional living arrangements comments: CHILDREN Gender identity (if verbalized by the patient): Female Spiritual care concerns: No Anes - Eval Final PreProcedure Day of Procedure 10/13/22 11:17 Patient weight: overweight Heart: regular rate and rhythm Lungs: clear to auscultation Airway: Mallampati scale class II Neurological: alert and oriented Last oral intake: >/= 8 hours ASA classification: II Emergent: no Anesthetic plan: proceed Anesthesia type and monitoring: general GIVS and standard monitoring Results Review: All pre-operative results and documents have been reviewed as part of the pre- operative evaluation. Informed Consent: The patient's anesthetic plan and its attendant risks and benefits were discussed with the patient/family/POA. Questions were solicited and answers provided to the satisfaction of the patient/family/POA.
[2022-10-13] MEDS: LIDOCAINE HCL 1% PF 30 ML VIAL 10 ML INFILTRATE (12:40)
--- NOTE | 2022-10-13 12:48 | P.OP_ITS ---
Procedure Note - Detailed Date of Procedure 10/13/22 Pre-op Diagnosis irregular bleeding Post-op Diagnosis Same Procedure Performed Hysteroscopy/ dilatation curettage/Cindy ablation Surgeon Logan Webber MD Anesthesia MAC and Local Indications set 32-year-old female status post tubal ligation with excessive heavy bleeding refractory Description of Procedure patient was prepped draped in the normal sterile fashion placed in dorsal lithotomy position. Under excellent IV sedation weighted speculum placed post 4 vagina. Anterior lip of the cervix grasped with a single-tooth tenaculum. 2.5cc of 1% xylocaine anesthesia placed at 2, 4, 8, 10:00 a.m. of the cervix. Uterus sounded to8.5cm. Serial dilatation fragmented out performed followed passes the 5mm visualizing hysteroscope using normal saline as visualizing medium. Thick irregular endometrial tissue was seen . Each of fallopian tube os could be seen. Uterus was then scraped over the entire 360? till good grating sound was heard. The instruments then withdrawn and the Cindy instru ment placed at the appropriate settings. This was burned for 120seconds. The instrument was removed the hysteroscope reinserted and a good burn noted in photo documentation undertaken. Lower site sites all removed patient was awakened went to recovery in satisfactory condition. All sponge, needle, instrument counts were correct. Estimated Blood Loss 5 Drains No Packing No Pathology Yes Complications No immediate complications Condition Stable Disposition PACU
[2022-10-13 12:50] VITALS: BP 116/72; PULSE 95; RESP 20; O2SAT 99
[2022-10-13 13:20] VITALS: BP 131/84; PULSE 81; RESP 20
[2022-10-13] MEDS: oxyCODONE HCL (*CRX) 5 MG TAB IR PO (13:41)
[2022-10-13 13:45] VITALS: BP 121/89; PULSE 85; RESP 20
== END 2022-10-13 14:15 | disposition home or self-care (01) ==
PROVIDERS: Visit Provider Obstetrics & Gynecology
PROC: 0U5B8ZZ Destruction of Endometrium, Via Natural or Artificial Opening Endoscopic (ICD-10-PCS; CPT 58563; principal; 2022-10-13 12:30)
DX: N93.9 Abnormal uterine and vaginal bleeding, unspecified (principal); N84.0 Polyp of corpus uteri; Z87.891 Personal history of nicotine dependence
CPT/HCPCS: 58563; 36415; 85014; 85018; 88305; A9270; J1100; J1885; J2250; J2405; J2704; J3010; J7120

== ENCOUNTER 2023-11-28 09:00 | Outpatient (CLI) | payer OTHER, SELFPAY ==
--- NOTE | ~2023-11-28 | US_ITS ---
Pelvic ultrasound. Clinical History: Abnormal uterine bleeding Technique: Realtime transabdominal and transvaginal scanning of the pelvis was performed. Color flow Doppler and Doppler spectral analysis were performed. Findings: The uterus is anteverted. The endometrial stripe has a thickness of 3 mm. Minimal fluid pr esent in the endometrial cavity. No focal mass is identified. The right ovary measures 3.3 x 2.6 x 1.8 cm. No significant right ovarian or adnexal mass is seen. The left ovary measures 2.5 x 1.3 x 1.9 cm. No significant left ovarian or adnexal mass is seen. Vascular flow present in both ovaries on Doppler spectral analysis. There is no evidence of free fluid in the cul de sac. Impression: No significant abnormality seen. Reviewed, dictated and finalized at [facility]. [employer] Impression: No significant abnormality seen.
== END 2023-11-28 09:01 | disposition home or self-care (01) ==
LOC: ANHIMG 09:02
PROVIDERS: PCP Obstetrics & Gynecology; Visit Provider Obstetrics & Gynecology
DX: N93.9 Abnormal uterine and vaginal bleeding, unspecified (principal)
CPT/HCPCS: 76830; 76856